=== PATIENT | male | born 1935 | race Caucasian/White ===

== ENCOUNTER 2024-02-21 12:52 | Outpatient (CLI) | payer MEDICARE, BC, SELFPAY ==
[2024-02-21 16:35] LABS: Hemoglobin A1C* 5.6 % (0-5.6)
== END 2024-02-21 12:53 | disposition home or self-care (01) ==
PROVIDERS: Visit Provider Nurse Practitioner Family
DX: I87.332 Chronic venous hypertension (idiopathic) with ulcer and inflammation of left lower extremity (principal); I87.311 Chronic venous hypertension (idiopathic) with ulcer of right lower extremity; I87.2 Venous insufficiency (chronic) (peripheral); I89.0 Lymphedema, not elsewhere classified; L97.228 Non-pressure chronic ulcer of left calf with other specified severity; L97.818 Non-pressure chronic ulcer of other part of right lower leg with other specified severity; S91.302A Unspecified open wound, left foot, initial encounter; E88.810 Metabolic syndrome; E66.09 Other obesity due to excess calories; Z68.36 Body mass index [BMI] 36.0-36.9, adult
CPT/HCPCS: 36415; 83036; 87070; 87186; 97602; G0463

== ENCOUNTER 2024-02-24 10:51 | Outpatient (CLI) | payer MEDICARE, BC, SELFPAY | END 2024-02-24 10:52 | disposition home or self-care (01) | LOC: WOUND 10:51 | PROVIDERS: Visit Provider Nurse Practitioner Family | DX: I87.332 Chronic venous hypertension (idiopathic) with ulcer and inflammation of left lower extremity (principal); I87.311 Chronic venous hypertension (idiopathic) with ulcer of right lower extremity; I87.2 Venous insufficiency (chronic) (peripheral); I89.0 Lymphedema, not elsewhere classified; L97.222 Non-pressure chronic ulcer of left calf with fat layer exposed; L97.818 Non-pressure chronic ulcer of other part of right lower leg with other specified severity; E88.810 Metabolic syndrome | CPT/HCPCS: 29581 ==

== ENCOUNTER 2024-02-27 11:04 | Outpatient (CLI) | payer MEDICARE, BC, SELFPAY | END 2024-02-27 11:05 | disposition home or self-care (01) | LOC: WOUND 11:04 | PROVIDERS: Visit Provider Family Medicine | DX: I87.332 Chronic venous hypertension (idiopathic) with ulcer and inflammation of left lower extremity (principal); I87.2 Venous insufficiency (chronic) (peripheral); L97.528 Non-pressure chronic ulcer of other part of left foot with other specified severity; I89.0 Lymphedema, not elsewhere classified; R21 Rash and other nonspecific skin eruption | CPT/HCPCS: 11042 ==

== ENCOUNTER 2024-03-06 12:51 | Outpatient (CLI) | payer MEDICARE, BC, SELFPAY | END 2024-03-06 12:52 | disposition home or self-care (01) | LOC: WOUND 12:52 | PROVIDERS: Visit Provider Family Medicine | DX: I87.332 Chronic venous hypertension (idiopathic) with ulcer and inflammation of left lower extremity; I87.2 Venous insufficiency (chronic) (peripheral); L97.828 Non-pressure chronic ulcer of other part of left lower leg with other specified severity; L97.528 Non-pressure chronic ulcer of other part of left foot with other specified severity; R21 Rash and other nonspecific skin eruption; I89.0 Lymphedema, not elsewhere classified | CPT/HCPCS: 11042; G0463 ==

== ENCOUNTER 2024-03-13 14:39 | Outpatient (CLI) | payer MEDICARE, BC, SELFPAY | END 2024-03-13 14:40 | disposition home or self-care (01) | LOC: WOUND 14:39 | PROVIDERS: Visit Provider Nurse Practitioner Family | DX: I87.332 Chronic venous hypertension (idiopathic) with ulcer and inflammation of left lower extremity (principal); I87.2 Venous insufficiency (chronic) (peripheral); L97.528 Non-pressure chronic ulcer of other part of left foot with other specified severity; I89.0 Lymphedema, not elsewhere classified; R21 Rash and other nonspecific skin eruption | CPT/HCPCS: 97597; 97602; G0463 ==

== ENCOUNTER 2024-03-20 14:06 | Outpatient (CLI) | payer MEDICARE, BC, SELFPAY | END 2024-03-20 14:07 | disposition home or self-care (01) | LOC: WOUND 14:07 | PROVIDERS: Visit Provider Nurse Practitioner Family | DX: I87.332 Chronic venous hypertension (idiopathic) with ulcer and inflammation of left lower extremity (principal); I87.2 Venous insufficiency (chronic) (peripheral); I89.0 Lymphedema, not elsewhere classified; L97.522 Non-pressure chronic ulcer of other part of left foot with fat layer exposed; L97.528 Non-pressure chronic ulcer of other part of left foot with other specified severity | CPT/HCPCS: 97602 ==

== ENCOUNTER 2024-03-27 13:33 | Outpatient (CLI) | payer MEDICARE, BC, SELFPAY | END 2024-03-27 13:34 | disposition home or self-care (01) | LOC: WOUND 13:33 | PROVIDERS: Visit Provider Nurse Practitioner Family | DX: I87.332 Chronic venous hypertension (idiopathic) with ulcer and inflammation of left lower extremity (principal); I87.2 Venous insufficiency (chronic) (peripheral); I89.0 Lymphedema, not elsewhere classified; L97.528 Non-pressure chronic ulcer of other part of left foot with other specified severity; R21 Rash and other nonspecific skin eruption | CPT/HCPCS: 97597; 97602 ==

== ENCOUNTER 2024-04-03 13:43 | Outpatient (CLI) | payer MEDICARE, BC, SELFPAY | END 2024-04-03 13:44 | disposition home or self-care (01) | LOC: WOUND 13:43 | PROVIDERS: Visit Provider Nurse Practitioner Family | DX: I89.0 Lymphedema, not elsewhere classified (principal); L97.528 Non-pressure chronic ulcer of other part of left foot with other specified severity | CPT/HCPCS: 97597; 97602 ==

== ENCOUNTER 2024-04-10 13:39 | Outpatient (CLI) | payer MEDICARE, BC, SELFPAY | END 2024-04-10 13:40 | disposition home or self-care (01) | LOC: WOUND 13:39 | PROVIDERS: Visit Provider Nurse Practitioner Family | DX: I89.0 Lymphedema, not elsewhere classified (principal); I87.2 Venous insufficiency (chronic) (peripheral); L97.528 Non-pressure chronic ulcer of other part of left foot with other specified severity | CPT/HCPCS: 97602 ==

== ENCOUNTER 2024-04-23 14:36 | Outpatient (CLI) | payer MEDICARE, BC, SELFPAY | END 2024-04-23 14:37 | disposition home or self-care (01) | LOC: WOUND 14:36 | PROVIDERS: Visit Provider Nurse Practitioner Family | DX: I87.332 Chronic venous hypertension (idiopathic) with ulcer and inflammation of left lower extremity (principal); I87.2 Venous insufficiency (chronic) (peripheral); I89.0 Lymphedema, not elsewhere classified; L97.522 Non-pressure chronic ulcer of other part of left foot with fat layer exposed | CPT/HCPCS: G0463 ==

== ENCOUNTER 2024-05-01 13:39 | Outpatient (CLI) | payer MEDICARE, BC, SELFPAY | END 2024-05-01 13:40 | disposition home or self-care (01) | LOC: WOUND 13:39 | PROVIDERS: Visit Provider Nurse Practitioner Family | DX: I87.332 Chronic venous hypertension (idiopathic) with ulcer and inflammation of left lower extremity (principal); I87.2 Venous insufficiency (chronic) (peripheral); I89.0 Lymphedema, not elsewhere classified; L97.528 Non-pressure chronic ulcer of other part of left foot with other specified severity | CPT/HCPCS: G0463 ==

== ENCOUNTER 2024-05-22 13:34 | Outpatient (CLI) | payer MEDICARE, BC, SELFPAY | END 2024-05-22 13:35 | disposition home or self-care (01) | LOC: WOUND 13:35 | PROVIDERS: Visit Provider Nurse Practitioner Family | DX: I89.0 Lymphedema, not elsewhere classified (principal) | CPT/HCPCS: G0463 ==

== ENCOUNTER 2024-09-17 15:11 | Emergency (ER) | payer MEDICARE, BC, SELFPAY ==
[2024-09-17 15:15] VITALS: BP 175/78; PULSE 67; RESP 18; TEMP 37.1; O2SAT 94; BMI 35.6
--- NOTE | 2024-09-17 15:42 | ED.GENADULT ---
HPI - General Adult General Time Seen by Provider: 15:42 Date Seen: 09/17/24 Chief complaint: Lower Extremity Swelling Stated complaint: Infection in right foot/ spreading to left Time Seen by Provider: 09/17/24 15:42 Source: patient, family, RN notes reviewed and old records reviewed (has been in wound clinic here with noted lymphedema) Mode of arrival: ambulatory Limitations: no limitations History of Present Illness HPI narrative: This 89-year-old male is coming in accompanied by his daughter with concern of possible foot infection. She does wraps and wound treatment for him, he has chronic lymphedema. He has been seen in the Wound Clinic before. They had some leftover product from Wound Clinic, she started to dress the dorsum of his right foot. She noted an area at the base of his 5th toe and along the great toe that she was treating with some Betadine and then putting a layer of wound treatment on it, some type of product. She notes he has no fevers, he denies any fevers, denies any night sweats or chills. He is not having increased pain. They do wraps for his lower extremities, they cannot do any compression stockings as his skin is too thin and it ends up traumatizing his skin per his daughter's report. She had to go way a couple of times recently in there has been a course of 2 days in 2 separate periods where she was not able to do the daily wraps and treatments. She is favoring hospitalization given he had some any problems with infection. She states the Wound Clinic was the only other place that did wound culture before. I did look at the records, we have a wound culture from January of 2024 that was MSSA, strep agalactiae a group B only resistant to tetracycline, Klebsiella oxytoca which was only resistant to ampicillin. He reportedly has had history of prostate cancer with potentially radiation per wound clinic notes. No diabetes noted. He is noted to have lymphedema. Related Data Home Medications ?Medication ?Instructions ?Recorded ?Confirmed carvedilol 6.25 mg tablet 6.25 mg PO BID 09/17/24 09/17/24 losartan 25 mg tablet 25 mg PO DAILY 09/17/24 09/17/24 rosuvastatin 10 mg tablet 10 mg PO QPM 09/17/24 09/17/24 spironolactone 25 mg tablet 25 mg PO DAILY 09/17/24 09/17/24 tamsulosin 0.4 mg capsule 0.4 mg PO QAM 09/17/24 09/17/24 Previous Rx's ?Medication ?Instructions ?Recorded levofloxacin 500 mg tablet 500 mg PO DAILY #9 tabs 09/17/24 Review of Systems Status of ROS: Reports: 6 or more systems reviewed and unremarkable except as noted in History and below PFSH PFS Social History Smoking Status: Former smoker How often do you have a drink containing alcohol: monthly or less AUDIT-C Alcohol total score: 1 Non-prescribed substance use: denies use Exam Const: Vital Signs, click to edit/add: Vital Signs - 24 hr 09/17/24 15:15 09/17/24 17:24 Temperature 98.8 F 98.6 F Pulse Rate [Right Pulse Oximeter] 67 53 L Respiratory Rate 18 18 Blood Pressure [Ri ght Upper Arm] 175/78 H 141/87 H Pulse Oximetry 94 95 Oxygen Delivery Me thod Room Air Room Air Santos was initially in the bathroom when I came in to see him, I waited in talked to his daughter. He did ambulate back from the bathroom. He has boots in wraps on his lower extremities. The right 1 was taken down, his daughter has multiple layers and management of his extremities seems to be extensive. He had a Velcro wrap that was taken down, gauze as, ultimately can see when everything is removed that he has no pretibial edema. The dorsum of his foot is somewhat swollen, somewhat red confluency over the dorsum. There is some cracking of the skin at the base of the 5th toe on the dorsum. He has got a little bit of wound along the lateral surface of the 1st great toe. There is some mild warmth but no fluctuance anywhere. You can see that the base later of the dressing he had on had collected some fluid in these 2 areas. I do try to do a wound culture of the 2 areas that were collecting fluid on the dressing but they are primarily dry, do see that there is maybe a little discharge that I have collected. He does complain of some mild pain when I am doing this. Certainly do not feel any areas of abscess. This could be some mild cellulitis verses lymphedema change, very difficult to say. He otherwise is alert, interactive, no apparent distress. Face atraumatic. Lungs are clear, good air entry, no wheezing or crackles. CV regular rate and rhythm, no murmur, normal S1-S2. Documenting provider has reviewed patient's vital signs: yes Course Course ED Course: This patient does have chronic lymphedema and certainly could have early mild cellulitis based on clinical appearance. His daughter obviously is doing diligent excellent wrapping and wound care. Will try to see if this wound culture grows anything but there was not much drainage to collect. Will get baseline labs, will stab lotion IV in case labs come back concerning. Overall, my opinion is that there could be some early cellulitis cm we may need antibiotics. Do feel that he likely can be discharged based on what I am seen but will await labs. I will certainly touch base with the hospitalist once we have labs back. Reevaluation(s) Time of Reevaluation #1: 17:41 Reevaluation #1: Have reviewed with patient and his daughter that I did speak with hospitalist Dr. Kwon and there is no indication for hospitalization. Upon review of his prior wound culture, could certainly consider levaquin. We never truly know exact etiologies of infections until wound cultures are back. I did review with them that I am not 100% sure that there is infection but given the drainage that we saw coming off on the bandages, will cover for infection. They certainly have noticed worsening over the last 2 weeks per his daughter and will cover with Levaquin. We did discuss that the bioavailability of oral verses IV Levaquin is no different. Will give him a dose of oral Levaquin here tonight and discharge on this. I will also put a new referral to the Wound Clinic through. Vital Signs Vital signs: Initial Vital Signs Temperature 98.8 F 09/17/24 15:15 Temperature Source Temporal Artery Scan 09/17/24 15:15 Pulse Rate 67 09/17/24 15:15 Pulse Rhythm Regular 09/17/24 15:15 Pulse Strength 3+ Normal 09/17/24 15:15 Respiratory Rate 18 09/17/24 15:15 Blood Pressure 175/78 H 09/17/24 15:15 Blood Pressure Mean 110 H 09/17/24 15:15 Blood Pressure Position Sitting 09/17/24 15:15 Pulse Oximetry 94 09/17/24 15:15 Oxygen Delivery Method Room Air 09/17/24 15:15 Vital Signs Temperature 98.8 F 09/17/24 15:15 Pulse Rate 67 09/17/24 15:15 Respiratory Rate 18 09/17/24 15:15 Blood Pressure 175/78 H 09/17/24 15:15 Pulse Oximetry 94 09/17/24 15:15 Oxygen Delivery Method Room Air 09/17/24 15:15 Temperature 98.6 F 09/17/24 17:24 Pulse Rate 53 L 09/17/24 17:24 Respiratory Rate 18 09/17/24 17:24 Blood Pressure 141/87 H 09/17/24 17:24 Pulse Oximetry 95 09/17/24 17:24 Oxygen Delivery Method Room Air 09/17/24 17:24 Medical Decision Making Lab Data Lab results reviewed: Yes I reviewed the patient's lab results Labs: Lab Results 09/17/24 Range/Units 16:16 WBC 6.04 (4.50-11.00) K/uL RBC 4.68 (4.30-5.90) m/uL Hgb 14.5 (13.5-17.5) gm/dL Hct 43.8 (37.0-53.0) % MCV 94 (80-100) fL MCH 31 (26-34) pg MCHC 33 (32-36) gm/dL RDW Coeff of Thang 13.0 (11.5-15.5) % Plt Count 151 (140-440) K/uL Neut % (Auto) 68.7 (42.0-72.0) % Lymph % (Auto) 15.9 L (20-44) % [place] % (Auto) 9.6 (0.0-11.0) % Eos % (Auto) 4.8 (0.0-7.0) % Baso % (Auto) 0.5 (0.0-3.0) % Neut # (Auto) 4.15 (1.7-7.0) K/uL Lymph # (Auto) 1.00 (0.90-2.90) K/uL [place] # (Auto) 0.60 (0.00-0.90) K/UL Eos # (Auto) 0.29 (0.00-0.50) K/uL Baso # (Auto) 0.03 (0.00-0.30) K/uL Abs Immat Gran (auto) 0.03 (0.00-0.30) K/uL Imm/Tot Granulo (auto) 0.5 % Sodium 136 (135-149) mmol/L Potassium 4.7 (3.6-5.1) mmol/L Chloride 104 (96-114) mmol/L Carbon Dioxide 27 (20-32) mmol/L Anion Gap 5 L (7-15) mEq/L BUN 21 (7-30) mg/dL Creatinine 1.3 (0.5-1.5) mg/dL Estimated Creat Clear 42.64 Estimated GFR 53 ml/min Glucose 101 (60-115) mg/dL Lactate 1.3 (0.5-1.9) mmol/L Calcium 9.0 (8.4-10.6) mg/dL Total Bilirubin 0.6 (0.1-1.5) mg/dL AST 35 (12-35) U/L ALT 30 (4-50) U/L Alkaline Phosphatase 63 (40-150) U/L C-Reactive Protein < 0.5 L (0.5-1.0) mg/dL Total Protein 6.8 (6.0-8.3) g/dL Albumin 4.2 (3.3-5.0) g/dL Procalcitonin 0.07 (<0.50) ng/mL Discharge Plan Discharge Clinical Impression: Lymphedema, Localized swelling of right foot Patient Disposition: Home, Self-Care Condition: Stable Instructions: Cellulitis (ED), Lymphedema (ED) Additional Instructions: I have put a new referral in for the Wound Clinic, hopefully they will be in touch with the soon to get you back in. Continue the wound cares that you have been doing, the daily dressing and wraps to help with the lymphedema. We will continue with Levaquin daily, next dose due tomorrow evening. You did receive a dose here tonight in the ER. This is a once daily antibiotic and the oral form is just as good as the IV form of this medicine. Continue to watch this foot for worsening, please return to the ER if you feel that there is worsening of infection despite the Levaquin. If you cannot get into the wound clinic within the next week, you are going to need a follow-up appointment with your primary care provider in clinic. Activity Level: Activity as Tolerated Prescriptions: New levofloxacin 500 mg tablet 500 mg PO DAILY Qty: 9 0RF No Action carvedilol 6.25 mg tablet 6.25 mg PO BID spironolactone 25 mg tablet 25 mg PO DAILY tamsulosin 0.4 mg capsule 0.4 mg PO QAM losartan 25 mg tablet 25 mg PO DAILY rosuvastatin 10 mg tablet 10 mg PO QPM Follow Up/Referrals: Provider,Not a Local [Primary Care Provider, Family Practice] Stand Alone Forms: [facility] Info Instructions
--- OUTSIDE RECORDS SUMMARY | 2024-09-17 16:11 | XMS_ITS | Encounter Summary ---
Author Organization [facility] Address [address] [place] [address]. [place] [address] Care Team Providers Care Industrial Truck Operator Name Role Phone Carolina Alex MD Unavailable + [phone] Carolina Alex MD Unavailable + [phone] Reji Jessica MD Unavailable [phone] Enoc Rossi DO Primary Care Provider [phone] Candie Bonilla APRN AUTOMOTIVE PRODUCTION WORKER Unavailable + [phone] Reji Jessica MD Unavailable + [phone] Napoleon Johnson MD Unavailable Unavailab Rashmi Rehman APRN AUTOMOTIVE PRODUCTION WORKER Unavailable [phone] Rashmi Ennis APRN AUTOMOTIVE PRODUCTION WORKER Unavailable [phone] Napoleon Johnson MD Unavailable Unavailab Rashmi Rehman APRN AUTOMOTIVE PRODUCTION WORKER Unavailable [phone] Napoleon Johnson MD Unavailable Unavailab le Encounter Details Date Type Department Care Team (Late st Contact Info) Description 06/18/2021 [facility] Heart [facility] [address] [facility] [address] [place] [address] Candie Bonilla APRN AUTOMOTIVE PRODUCTION WORKER [address] [facility] [address] [place] [address] Social History Tobacco Use Types Packs/Day Years Used Date Smoking Tobacco: Never Smokeless Tobacco: Never Comments:Pt states he has ne sabrina smoked Alcohol Use Standard Drinks/Week Comments Yes 0 (1 standard drink = 0.6 oz pur e alcohol) 2 shots per night Sex and Gender Information Value Date Recorded Sex Assigned at Male 03/09/2021 1:10 PM CAREER BASED INTERVENTION COORDINATOR Legal Sex Male 3:26 AM CAREER BASED INTERVENTION COORDINATOR Gender Identity Male 03/09/2021 1:10 PM CAREER BASED INTERVENTION COORDINATOR Sexual Orientation Straight 03/09/2021 1: 10 PM CAREER BASED INTERVENTION COORDINATOR COVID-19 Exposure Response Date Recorded In the last month, have you been in contact with someone who was confirmed or suspected to have Coronavirus / COVID-19? No / Unsure 06/16/2021 9:58 AM CAREER BASED INTERVENTION COORDINATOR documented as of this encounter Plan of Treatment Not on file documented as of this encounter Visit Diagnoses Not on filedocumented in this encounter Additional Health Concerns Infection Onset Date Last Indicated Resolved Time Rule Out COVID-19 04/21/2022 04/21/2022 04/21/2022 8:12 AM CAREER BASED INTERVENTION COORDINATOR documented as of this encounter Care Teams Industrial Truck Operator Relationship Specialty [place] [address] [place] [id number] PCP - General Family Medicine 06/16/21 Carolina Alex MD [address] [facility] [place] [address] Hematology & Oncology 11/18/15 Carolina Alex MD [address] [facility] [address] Assigned Cancer Care Provider 11/07/20 08/29/21 Reji Jessica MD [address] [facility] [address] [facility] [place] [address] Assigned Heart and Vascular Provider 03/15/21 06/20/21 Candie Bonilla APRN AUTOMOTIVE PRODUCTION WORKER [address] [place] [address] Assigned Heart and Vascular Provider 06/21/21 04/02/22 Reji Jessica MD [address] [place] [address] Assigned Heart and Vascular Provider 04/03/22 05/14/22 Napoleon Johnson MD Assigned Heart and Vascular Provider 05/15/22 06/25/22 Rashmi Ennis APRN AUTOMOTIVE PRODUCTION WORKER [address] [place] [address] Nurse Practitioner Cardiovascular Disease 06/17/22 Rashmi Ennis APRN AUTOMOTIVE PRODUCTION WORKER [address] [place] [address] Assigned Heart and Vascular Provider 06/26/22 08/20/22 Napoleon Johnson MD Assigned Heart and Vascular Provider 08/21/22 08/27/22 Rashmi Ennis APRN AUTOMOTIVE PRODUCTION WORKER [address] [place] [address] Assigned Heart and Vascular Provider 08/28/22 11/05/22 Napoleon Johnson MD Assigned Heart and Vascular Provider 11/06/22 documented as of this encounter
--- OUTSIDE RECORDS SUMMARY | 2024-09-17 16:11 | XMS_ITS | Encounter Summary ---
Author Organization [facility] Address [address] [place] [address] Care Team Providers Care Carbon Blocks Press Operator Name Role Phone Primary Dr, Kate WILSON Primary Care Provider Lou vailable Yaima Drake MD Primary Care Provider + [phone] Napoleon Johnson MD Unavailable Unavailab Carolina Nettles MD Unavailable + [phone] Carolina Alex MD Unavailable + [phone] Candie Bonilla APRN PRIVATE SECTOR EXECUTIVE Unavailable +[phone] Reji Jessica MD Unavailable + [phone] Enoc Rossi DO Primary Care Provider [phone] Candie Bonilla APRN PRIVATE SECTOR EXECUTIVE Unavailable +[phone] Reji Jessica MD Unavailable + [phone] Napoleon Johnson MD Unavailable Unavailab Rashmi Rehman APRN PRIVATE SECTOR EXECUTIVE Unavailable +[phone] Rashmi Ennis APRN, CNP Unavailable +[phone] Napoleon Johnson MD Unavailable Unavailab Rashmi Rehman APRN PRIVATE SECTOR EXECUTIVE Unavailable +[phone] Napoleon Johnson MD Unavailable Unavailab le Encounter Details Date Type Department Care Team (Late st Contact Info) Description 02/20/2007 Office Visit-[facility] [address] [place] [address] Phoenix Madrid MD Social History Tobacco Use Types Packs/Day Years Used Date Smoking Tobacco: Never Assessed Sex and Gender Information Value Date Recorded Sex Assigned at Male 03/09/2021 1:10 PM DIRECTOR OF CARDIOPULMONARY SERVICES Legal Sex Male 3:26 AM DIRECTOR OF CARDIOPULMONARY SERVICES Gender Identity Male 03/09/2021 1:10 PM DIRECTOR OF CARDIOPULMONARY SERVICES Sexual Orientation Straight 03/09/2021 1: 10 PM DIRECTOR OF CARDIOPULMONARY SERVICES documented as of this encounter Progress Notes * Phoenix Madrid MD - 02/22/2007 11:02 AM CDT Progress Note Created by: Phoenix Madrid M.D. DATE: 02/20/2007 ANAIHilary CURLY [id number] DATE OF : 1935 AGE: [age] years old Referring Physician: YAIMA DRAKE Referring Clinic: [facility] CURRENT DIAGNOSES 1. - CAD, 414.00 2. 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 - Palpitations, 785.1 4. Abnormal Ekg, 794.31 5. PTCA, V45.82 ALLERGIES NKA MEDICATIONS (prior to changes made today) 1. Fish Oil -, 1 p.o. q.d. 2. Repronex 75 iu, 1 p.o. q.i.d. 3. Arginine 500 mg, 1 p.o. q.d. 4. CoQ 10 50 mg, 1 p.o. b.i.d. 5. Beta Carotene 30 mg, 1 p.o. q.d. 6. garlic 600 mg, 1 p.o. q.d. 7. Danielle-Dec Multiple Vitamins with Minerals, 1 p.o. q.d. 8. Vitamin C 250 mg, 225 mg qd 9. Avodart 0.5 mg, 1 p.o. q.d. 10. Atenolol 25 mg, 1 p.o. qAM 11. Aspirin 81 mg, 1 p.o. qPM 12. Lipitor 10 mg, 1/2 tab qHS 13. Amlodipine 5 mg, 1 p.o. qHS CHIEF COMPLAINTS Per MD - follow up HISTORY OF PRESENT ILLNESS Curly Soria, age 72, came today, a happy, active, and asymptomatic man. 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 He does not exercise particularly but he is very active doing housework, yardwork, shopping, etc. He denies any cardiovascular symptoms. His medications are as listed above. He says you have been satisfied with his cholesterol profile. I have been shooting for total cholesterols below 160, and LDL below 70. He is not on an SHOBHA inhibitor but he is happy on the low dose beta kay and amlodipine program above and Lipitor, of course,for his cholesterol profile. Raudel has coronary artery disease. It was documented in June,, which showed a totally occluded posterolateral branch of the RCA, receiving a Cypher drug eluting stent, and mild LAD and proximal RCA disease otherwise. His LV function has been well maintained but his last ejection fraction from a Cardiolite study a year ago, in December,, showed an LVEF of 54%, with a small inferior scar and no ischemia. Curly's physical exam showed a blood pressure of 130/80, heart rate 60 beats per minute. Head andneck were normal. No bruits heard. No neck vein distention present. Heart was regular without gallop or murmur. Lungs were clear. Abdomen was soft without organomegaly, mass, or bruit. He is mildly obese. Extremities show +2 radial and pedal pulses and no edema. The rest of his exam was normal. 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 severe inferolateral ischemia with small nontransmural DE; EF decreases from from 54 to 50% rest to exercise., myocardial perfusion imaging (Nuclear) November 2003, myocardial perfusion imaging (Nuclear) December 2004, myocardial perfusion imaging (Nuclear) December 2005, myocardial perfusion imaging (Nuclear) January 2007 Left Ventricular Ejection Fraction: 50%, 58% 12/27, EF50% by nuclear study -December 2004, EF50% by nuclear study - December 2005, 01/2007 ejection fraction was 59% at rest and 60% peak stress. PMHx Stress Echo Results: 03/26: LVH but otherwise normal Nuclear Results: 01/2007 negative for ischemia or infarction. FAMILY HISTORY: Father - age 96 and Alzhiemers; Mother - pacemaker; CARDIAC RISK FACTORS Tobacco Abuse: negative; Family History of Heart Disease: negative; Hyperlipidemia: lipids pending;Hypertension: positive; Diabetes Mellitus: negative; Prior History of Heart Disease: negative; Obesity:negative; Sedentary Life Style:negative; Age:positive SOCIAL HISTORY Alcohol Use - drinks occasionally, wine and mixed drinks; Smoking - never smoked; Diet - regular diet without modifications and caffeine use-1-2 per day; Lifestyle - , drives car, active lifestyle, does shopping alone and does yard work; Exercise - some exercise, aerobics, treadmill, weight lifting and 2 days per week; Seat Belt Use - always; Occupation - forensic accountant; Residence - lives withwife and lives in [place] year round in own home; Place of - [place]; Hours Worked - retired 03/2006; REVIEW OF SYSTEMS GENERAL denies recent weight loss, weight gain, fever or chills or change in exercise tolerance. INTEGUMENTARY denies any change in hair or nails, rashes, or skin lesions. EYES wears eye glasses/contact lenses EARS, NOSE, THROAT, MOUTH denies any hearing loss, epistaxis, hoarseness or difficulty speaking. RESPIRATORY denies dyspnea, snoring, cough, wheezing or hemoptysis. CARDIOVASCULAR See HPI ABDOMINAL denies ulcer disease, hematochezia or melena. MUSCULOSKELETAL pain back, joint pain NEUROLOGICAL tia in 1983 PSYCHIATRIC sleep disturbance, needs more of it ENDOCRINE polydipsia, intolerance to cold HEMATOLOGICAL/IMMUNOLOGIC seasonal allergies PHYSICAL EXAMINATION VITAL SIGNS: Blood Pressure: 130/80 Sitting, Left arm, large cuff Pulse- 58.00/min. Weight- 229.00 lbs. Height- 72.00 Temperature- .00 CONSTITUTIONAL cooperative, alert and oriented,well developed, well nourished, in no acute distress. SKIN warm and dry to touch, no apparent skin lesions or masses noted HEAD normocephalic, atraumatic EYES Pupils equal and round, conjunctivae and lids unremarkable, sclera white, no xanthalasma ENT no pallor or cyanosis, dentition good CHEST normal symmetry, no tenderness to palpation, normal respiratory excursion, no intercostal retraction, no use of accessory muscles, clear to auscultation and percussion. CARDIAC regular rhythm, S1 normal, S2 normal, No S3 or S4, Apical impulse not displaced, no murmurs, gallops or rubs detected. ABDOMEN abdomen soft, bowel sounds normoactive, no masses, no hepatosplenomegaly, non- tender, no bruits PERIPHERAL PULSES pulses full and equal in all extremities EXTREMITIES & BACK no clubbing, cyanosis or edema PSYCHIATRIC no difficulties with speech or language, normal memory NEUROLOGICAL no gross motor deficits noted, affect appropriate, oriented to time, person and place. MEDICATIONS UPDATED/STARTED TODAY: Atenolol 25 mg, 1 p.o. qAM, 0 Aspirin 81 mg, 1 p.o. qPM, 0 Lipitor 10 mg, 1/2 tab qHS, 0 Amlodipine 5 mg, 1 p.o. qHS, 0 IMPRESSIONS/PLAN Curly is 72 and he is asymptomatic. I asked to see him again in two or three years, or should he develop symptoms. If he is stable I told him he did not really even need to follow up with me, although an occasional stress test I think does make some sense in this otherwise vivacious and active 72-year-old man. I reviewed these issues with him. He was satisfied with his status and so was I. I referred him to you for ongoing care. If he has problems, please let me know. 1. Whm-lxxy-yjdwpsmrads coronary artery disease. 2. Asymptomatic otherwise. 3. Post stenting of distal RCA. 4. Mild obesity. 5. Treated hyperlipidemia. 6. Treated hypertension. PLAN: As above. TODAYS ORDERS 1. F/U with Phoenix Madrid MD 2 years 2. Treadmill Nuclear Study 1 year Phoenix Madrid M.D. documented in this encounter Plan of Treatment Not on file documented as of this encounter Visit Diagnoses Not on filedocumented in this encounter Additional Health Concerns Infection Onset Date Last Indicated Resolved Time Rule Out COVID-19 04/21/2022 04/21/2022 04/21/2022 8:12 AM DIRECTOR OF CARDIOPULMONARY SERVICES documented as of this encounter Care Teams Carbon Blocks Press Operator Relationship Specialty Start Date End Date Primary Kate Pitts MD PCP - General 01/05/11 01/05/12 Yaima Drake MD [facility] [address] [place] [phone] PCP - General Family Practice 01/06/12 06/15/21 [place] [address] [place] [phone] PCP - General Family Medicine 06/16/21 Napoleon Johnson MD Assigned Heart and Vascular Provider 02/15/20 01/24/21 Carolina Alex MD [address] [place] [address] Hematology & Oncology 11/18/15 Carolina Alex MD [address] [place] [address] Assigned Cancer Care Provider 11/07/20 08/29/21 Candie Bonilla APRN PRIVATE SECTOR EXECUTIVE [address] [place] [address] Assigned Heart and Vascular Provider 01/25/21 03/14/21 Reji Jessica MD [address] [place] [address] Assigned Heart and Vascular Provider 03/15/21 06/20/21 Candie Bonilla APRN PRIVATE SECTOR EXECUTIVE [address] [place] [address] Assigned Heart and Vascular Provider 06/21/21 04/02/22 Reji Jessica MD [address] [place], [place] [address] Assigned Heart and Vascular Provider 04/03/22 05/14/22 Napoleon Johnson MD Assigned Heart and Vascular Provider 05/15/22 06/25/22 Rashmi Ennis APRN PRIVATE SECTOR EXECUTIVE [address] [place] [address] Nurse Practitioner Cardiovascular Disease 06/17/22 Rashmi Ennis APRN PRIVATE SECTOR EXECUTIVE [address] [place] [address] Assigned Heart and Vascular Provider 06/26/22 08/20/22 Napoleon Johnson MD Assigned Heart and Vascular Provider 08/21/22 08/27/22 Rashmi Ennis APRN PRIVATE SECTOR EXECUTIVE [address] [place] [address] Assigned Heart and Vascular Provider 08/28/22 11/05/22 Napoleon Johnson MD Assigned Heart and Vascular Provider 11/06/22 documented as of this encounter
--- OUTSIDE RECORDS SUMMARY | 2024-09-17 16:11 | XMS_ITS | Encounter Summary ---
Author Organization [facility] Address [address] [place] [address] Care Team Providers Care Foiling Machine Operator Name Role Phone Primary Dr, Kate WILSON Primary Care Provider Lou vailable Yaima Drake MD Primary Care Provider + [phone] Napoleon Johnson MD Unavailable Unavailab Carolina Nettles MD Unavailable + [phone] Carolina Alex MD Unavailable + [phone] Candie Bonilla APRN WINDOWS DEPLOYMENT TECHNICIAN Unavailable +[phone] Reji Jessica MD Unavailable + [phone] Enoc Rossi DO Primary Care Provider [phone] Candie Bonilla APRN WINDOWS DEPLOYMENT TECHNICIAN Unavailable +[phone] Reji Jessica MD Unavailable + [phone] Napoleon Johnson MD Unavailable Unavailab Rashmi Rehman APRN WINDOWS DEPLOYMENT TECHNICIAN Unavailable +[phone] Rashmi Ennis APRN, CNP Unavailable [phone] Napoleon Johnson MD Unavailable Unavailab Rashmi Rehman APRN WINDOWS DEPLOYMENT TECHNICIAN Unavailable +[phone] Napoleon Johnson MD Unavailable Unavailab le Encounter Details Date Type Department Care Team (Late st Contact Info) Description 01/22/2004 Office Visit-[facility] [address] [place] [address] Unknown, DoctorMD Social History Tobacco Use Types Packs/Day Years Used Date Smoking Tobacco: Never Assessed Sex and Gender Information Value Date Recorded Sex Assigned at Male 03/09/2021 1:10 PM STATE INSPECTOR Legal Sex Male 3:26 AM STATE INSPECTOR Gender Identity Male 03/09/2021 1:10 PM STATE INSPECTOR Sexual Orientation Straight 03/09/2021 1: 10 PM STATE INSPECTOR documented as of this encounter Progress Notes * Unknown, MD Sunny - 01/22/2004 10:01 AM CDT Progress Note Created by: Shelbi Avila MD DATE: 01/22/2004 [place] DATE OF : 1935 AGE: [age] years old Referring Physician: YAIMA DRAKE Referring Clinic: [facility] [id number] CURRENT DIAGNOSES 1. PTCA, V45.82 2. - CAD, 414.00 3. 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 - Palpitations, 785.1 ALLERGIES NKA MEDICATIONS (including any changes made today) 1. Danielle-Dec Multiple Vitamins with Minerals, 1 p.o. q.d. 2. Vitamin C 250 mg, 225 mg qd 3. Aspirin Child 81 mg, 1 p.o. q.d. 4. Norvasc 5 mg, 1 p.o. q.d. 5. Lipitor 20 mg, 1 p.o. q.d. 6. Atenolol 50 mg, 1 p.o. q.d. 7. Nitroglycerin 0.4 mg, PRN CHIEF COMPLAINTS S/P PTCA/Stent HISTORY OF PRESENT ILLNESS Curly feels so good he can hardly stand it. His nuclear stress shows no ischemia and his lipid profile continues to improve. He denies any symptoms referable to his cardiac status. 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 severe inferolateral ischemia with small nontransmural MS; EF decreases from from 54 to 50% rest to exercise., myocardial perfusion imaging (Nuclear) November 2003 Left Ventricular Ejection Fraction: 50%, 58% 12/27 FAMILY HISTORY: Father - Alzhiemers; Mother - pacemaker; CARDIAC RISK FACTORS Tobacco Abuse: negative; Family History of Heart Disease: negative; Hyperlipidemia: lipids pending;Hypertension: positive; Diabetes Mellitus: negative; Prior History of Heart Disease: negative; Obesity:negative; Sedentary Life Style:negative; Age:positive SOCIAL HISTORY Alcohol Use - drinks occasionally, wine and mixed drinks; Smoking - never smoked; Diet - regular diet without modifications and caffeine use-1-2 per day; Exercise - some exercise, aerobics, treadmill, weight lifting and 2 days per week; Seat Belt Use - always; Occupation - property staff accountant; Residence - lives with ; Place of - [place]; Hours Worked - 40 hours per week; REVIEW OF SYSTEMS GENERAL weight gain, 1 lb INTEGUMENTARY denies any change in hair or nails, rashes, or skin lesions. EYES wears eye glasses/contact lenses EARS, NOSE, THROAT, MOUTH denies any hearing loss, epistaxis, hoarseness or difficulty speaking. RESPIRATORY allergies CARDIOVASCULAR Heart burn last night from wine ABDOMINAL denies ulcer disease, hematochezia or melena. MUSCULOSKELETAL pain back, joint pain NEUROLOGICAL tia in 1983 PSYCHIATRIC stress ENDOCRINE polydipsia, intolerance to cold HEMATOLOGICAL/IMMUNOLOGIC seasonal allergies PHYSICAL EXAMINATION VITAL SIGNS: Blood Pressure: 138/80 Sitting, Left arm, regular cuff Pulse- 56.00/min. Weight- 218.00 lbs. Height- 72.00 Temperature- .00 CONSTITUTIONAL cooperative, alert and oriented,well developed, well nourished, in no acute distress. HEAD normocephalic, atraumatic ENT no pallor or cyanosis, dentition good CHEST normal symmetry, no tenderness to palpation, normal respiratory excursion, no intercostal retraction, no use of accessory muscles, clear to auscultation and percussion. CARDIAC regular rhythm, S1 normal, S2 normal, No S3 or S4, Apical impulse not displaced, no murmurs, gallops or rubs detected. EXTREMITIES & BACK no deformities, clubbing, cyanosis, erythema or edema observed. There are no spinal abnormalities noted. Normal muscle strength and tone. PSYCHIATRIC no difficulties with speech or language, normal memory NEUROLOGICAL no gross motor deficits noted, affect appropriate, oriented to time, person and place. IMPRESSIONS/PLAN: I think it is reasonable to stop the Plavix and PRN NTG today and plan to repeat Curly's nuclear stress and see him in one year unless he has interval problems. He will have his lipid/liver profile checked at Dr Drake's office in six months. TODAYS ORDERS 1. Treadmill Nuclear Study 1 year 2. Return Visit 1 year Shelbi Avila MD documented in this encounter Plan of Treatment Not on file documented as of this encounter Visit Diagnoses Not on filedocumented in this encounter Additional Health Concerns Infection Onset Date Last Indicated Resolved Time Rule Out COVID-19 04/21/2022 04/21/2022 04/21/2022 8:12 AM STATE INSPECTOR documented as of this encounter Care Teams Foiling Machine Operator Relationship Specialty Start Date End Date Primary Kate Pitts MD PCP - General 01/05/11 01/05/12 Yaima Drake MD [facility] [address] [place] [address] PCP - General Family Practice 01/06/12 06/15/21 [place] [address] [place] [address] PCP - General Family Medicine 06/16/21 Napoleon Johnson MD Assigned Heart and Vascular Provider 02/15/20 01/24/21 Carolina Alex MD [address] [place] [address] Hematology & Oncology 11/18/15 Carolina Alex MD [address] [place] [address] Assigned Cancer Care Provider 11/07/20 08/29/21 Candie Bonilla APRN WINDOWS DEPLOYMENT TECHNICIAN [address] [place] [address] Assigned Heart and Vascular Provider 01/25/21 03/14/21 Reji Jessica MD [address] [place] [address] Assigned Heart and Vascular Provider 03/15/21 06/20/21 Candie Bonilla APRN WINDOWS DEPLOYMENT TECHNICIAN [address] [place] [address] Assigned Heart and Vascular Provider 06/21/21 04/02/22 Reji Jessica MD [address] [place] [address] Assigned Heart and Vascular Provider 04/03/22 05/14/22 Napoleon Johnson MD Assigned Heart and Vascular Provider 05/15/22 06/25/22 Rashmi Ennis APRN WINDOWS DEPLOYMENT TECHNICIAN [address] [place] [address] Nurse Practitioner Cardiovascular Disease 06/17/22 Rashmi Ennis APRN WINDOWS DEPLOYMENT TECHNICIAN [address] [place] [address] Assigned Heart and Vascular Provider 06/26/22 08/20/22 Napoleon Johnson MD Assigned Heart and Vascular Provider 08/21/22 08/27/22 Rashmi Ennis APRN WINDOWS DEPLOYMENT TECHNICIAN [address] [place] [address] Assigned Heart and Vascular Provider 08/28/22 11/05/22 Napoleon Johnsno MD Assigned Heart and Vascular Provider 11/06/22 documented as of this encounter
--- OUTSIDE RECORDS SUMMARY | 2024-09-17 16:11 | XMS_ITS | Encounter Summary ---
Author Organization [facility] Address [address] [place] [address]. [place] [address] Care Team Providers Care Leaflet Distributor Name Role Phone Carolina Alex MD Unavailable +- [phone] Enoc Rossi DO Primary Care Provider [phone] Candie Bonilla APRN IMPOSER Unavailable [phone] Reji Jessica MD Unavailable + [phone] Napoleon Johnson MD Unavailable Unavailab Rashmi Rehman APRN IMPOSER Unavailable Rashmi Ennis APRN IMPOSER Unavailable [phone] Napoleon Johnson MD Unavailable Unavailab Rashmi Rehman APRN IMPOSER Unavailable [phone] Napoleon Johnson MD Unavailable Unavailab le Encounter Details Date Type Department Care Team (Late st Contact Info) Description 02/12/2022 External Order Results [facility] [address] [place] [address] Outside, Provider Social History Tobacco Use Types Packs/Day Years Used Date Smoking Tobacco: Never Smokeless Tobacco: Never Comments:Pt states he has ne sabrina smoked Alcohol Use Standard Drinks/Week Comments Yes 0 (1 standard drink = 0.6 oz pur e alcohol) 1 shot at night Sex and Gender Information Value Date Recorded Sex Assigned at Male 03/09/2021 1:10 PM FIBERGLASS LAMINATOR Legal Sex Male 3:26 AM FIBERGLASS LAMINATOR Gender Identity Male 03/09/2021 1:10 PM FIBERGLASS LAMINATOR Sexual Orientation Straight 03/09/2021 1: 10 PM FIBERGLASS LAMINATOR documented as of this encounter Plan of Treatment Not on file documented as of this encounter Procedures Procedure Name Priority Date/Time Associated Diagnosis Comments LIPID PROFILE Routine 02/12/2022 11:45 AM CDT ALT Routine 02/12/2022 11:45 AM CDT BASIC METABOLIC PANEL Routine 02/12/2022 11:45 AM CDT documented in this encounter Results * (ABNORMAL) Lipid Profile (02/12/2022 11:45 AM CDT) Cholesterol (External) 125 100 - 199 mg/dL NON-INTERFACE D (ONBASE SCANS) Triglycerides (External) 80 <150 mg/dL NON-INTERFACE D (ONBASE SCANS) HDL Cholesterol (External) 38(L) >40 mg/dL NON-INTERFACE D (ONBASE SCANS) LDL-Cholesterol (External) 71 <=130 mg/dL NON-INTERFACE D (ONBASE SCANS) Blood 02/12/2022 11:4 5 AM CDT Narrative MI PFT - 02/15/2022 12:32 PM CDT Verified by Williams Silva on 02/15/2022. Amy Gaona MD LAB - BLOOD ORDERABLES Edited Result - Final MI PFT NON-INTERFACED (ONBASE SCANS) * (ABNORMAL) Basic metabolic panel (02/12/2022 11:45 AM CDT) Sodium (External) 140 135 - 145 mmol/l NON-INTERFACED (ONBASE SCANS) Potassium (External) 4.6 3.5 - 5.0 mmol/l NON-INTERFACED (ONBASE SCANS) Chloride (External) 106 88 - 110 mmol/l NON-INTERFACED (ONBASE SCANS) CO2 (External) 25 21 - 31 mmol/l NON-INTERFACED (ONBASE SCANS) Anion Gap (External) 9 5 - 18 NON-INTERFACED (ONBASE SCANS) Glucose (External) 87 65 - 100 mg/dL NON-INTERFACED (ONBASE SCANS) Calcium (External) 8.7 8.5 - 10.5 mg/dL NON-INTERFACED (ONBASE SCANS) Urea Nitrogen (External) 16 8 - 25 mg/dL NON-INTERFACED (ONBASE SCANS) Creatinine (External) 0.93 0.72 - 1.25 mg/dL NON-INTERFACED (ONBASE SCANS) BUN/Creatinine Ratio (External) 17 10 - 20 NON-INTERFACED (ONBASE SCANS) GFR Estimated (External) 80(L) >90 ml/min/1.7 3m2 NON-INTERFACED (ONBASE SCANS) Blood 02/12/2022 11:4 5 AM CDT Narrative [facility] PFT - 02/15/2022 12:32 PM CDT Verified by Williams Silva on 02/15/2022. Amy Gaona MD LAB - BLOOD ORDERABLES Edited Result - Final [facility] PFT NON-INTERFACED (ONBASE SCANS) * ALT (02/12/2022 11:45 AM CDT) ALT (External) 18 8 - 45 IU/ml NON-INTERFACED (ONBASE SCANS) Blood 02/12/2022 11:4 5 AM CDT Narrative [facility] PFT - 02/15/2022 12:32 PM CDT Verified by Williams Silva on 02/15/2022. Amy Gaona MD LAB - BLOOD ORDERABLES Edited Result - Final [facility] PFT NON-INTERFACED (ONBASE SCANS) documented in this encounter Visit Diagnoses Not on filedocumented in this encounter Additional Health Concerns Infection Onset Date Last Indicated Resolved Time Rule Out COVID-19 04/21/2022 04/21/2022 04/21/2022 8:12 AM FIBERGLASS LAMINATOR documented as of this encounter Care Teams Leaflet Distributor Relationship Specialty [place] [address] [address] [place] [phone] PCP - General Family Medicine 06/16/21 Carolina Alex MD [address] [place] [address] Hematology & Oncology 11/18/15 Candie Bonilla APRN IMPOSER [address] [place] [address] Assigned Heart and Vascular Provider 06/21/21 04/02/22 Reji Jessica MD [address] [place] [address] Assigned Heart and Vascular Provider 04/03/22 05/14/22 Napoleon Johnson MD Assigned Heart and Vascular Provider 05/15/22 06/25/22 Rashmi Ennis APRN IMPOSER [address] [place] [address] Nurse Practitioner Cardiovascular Disease 06/17/22 Rashmi Ennis APRN IMPOSER [address] [place] [address] Assigned Heart and Vascular Provider 06/26/22 08/20/22 Napoleon Johnson MD Assigned Heart and Vascular Provider 08/21/22 08/27/22 Rashmi Ennis APRN IMPOSER [address] [place] [address] Assigned Heart and Vascular Provider 08/28/22 11/05/22 Napoleon Johnson MD Assigned Heart and Vascular Provider 11/06/22 documented as of this encounter
--- OUTSIDE RECORDS SUMMARY | 2024-09-17 16:11 | XMS_ITS | Clinical Summary ---
Author Organization [facility] Address [address] [place] [id number] Care Team Providers Care Hotel Recreational Facilities Manager Name Role Phone Carolina Alex MD Unavailable [phone] Enoc Rossi DO Primary Care Provider Rashmi Ennis APRN FISCAL SPECIALIST Unavailable [phone] Napoleon Johnson MD Unavailable Unavailab le Allergies Active Allergy Reactions Criticality Noted Date Comments Ciprofloxacin Rash Low 03/28/2024 Dust Mites Unknown 08/12/2023 Lactose Diarrhea 12/12/2015 Furosemide Rash Low 02/10/2024 Other Drug Allergy (See Comments) Blisters 11/09/2023 Polymem Wound Dressing; per daughter patient broke out with Blisters Pneumococcal 13-Deloris Conj Vacc Muscle Pain (Myalgia) 12/12/2015 Pneumococcal Polysaccharide Vaccine Cramps 10/02/2013 Shoulder/arm muscle tightened up a lot Torsemide Rash Low 03/28/2024 Medications aspirin 81 MG tablet Take 81 mg by mouth daily Active CALCIUM-MAGNESIUM PO Take 1 tablet by mouth 2 times daily Active IBUPROFEN PO Take 400 mg by mouth nightly as needed Active ALFALFA PO Take 5 tablets by mouth 2 times daily Active fexofenadine (SIN) 180 MG tablet Take 180 mg by mouth every evening as needed Active sodium chloride (OCEAN) 0.65 % nasal spray Toone 1 spray into both nostrils daily as needed for congestion Active Alpha Lipoic Acid 200 MG CAPS Take 1 capsule by mouth 2 times daily Active UNABLE TO FIND 1 tablet 2 times daily MEDICATION NAME: CARDIOAUXIN - Niacin, pantesin pantethine, phytosterols, policosanol Active Methylsulfonylmeth ane (MSM) 1000 MG TABS Take 2,000 mg by mouth daily Active carvedilol (COREG) 6.25 MG tabletIndications: Non-STEMI (non-ST elevated myocardial infarction) (H) Take 1 tablet (6.25 mg) by mouth 2 times daily (with meals) 180 tablet 3 09/07/19 19 Active cholecalciferol (D--WESTON, VITAMIN D3) 10 mcg/mL (400 units/mL) LIQD liquid Take 30 mcg by mouth daily 1200 units daily Active betamethasone dipropionate (DIPROSONE) 0.05 % external ointmentIndication s:Ulcer of right leg, with fat layer exposed (H),Varicose veins of bilateral lower extremities with other complications,Swel ling of limb Apply topically daily 100 g 2 02/04/20 21 Active Dermatological Products, Misc. (EPICERAM) EMULIndications:Ul cer of right leg, with fat layer exposed (H),Non-pressure chronic ulcer of right calf with fat layer exposed (H) Externally apply 1 Applicatorful topically daily 450 g 11 02/04/20 21 Active Magnesium Glycinate 100 MG CAPS Take by mouth as needed 120mg capsules Active losartan (COZAAR) 25 MG tablet Take 25 mg by mouth daily 180 tablet 3 02/19/20 22 Active benzonatate (TESSALON) 100 MG capsuleIndications :Upper respiratory tract infection, unspecified type,Bronchitis Take 1 capsule (100 mg) by mouth 3 times daily as needed for cough 20 capsule 04/23/20 22 Active guaiFENesin (MUCINEX) 600 MG 12 hr tabletIndications: Upper respiratory tract infection, unspecified type,Bronchitis Take 2 tablets (1,200 mg) by mouth 2 times daily as needed for congestion 14 tablet 04/23/20 22 Active spironolactone (ALDACTONE) 25 MG tabletIndications: Essential hypertension, benign Take 1 tablet (25 mg) by mouth daily 90 tablet 4 10/19/19 24 Active rosuvastatin (CRESTOR) 10 MG tabletIndications: Mixed hyperlipidemia Take 1 tablet (10 mg) by mouth at bedtime 90 tablet 3 10/31/19 24 Active Active Problems Problem Noted Date Diagnosed Date Nonhealing ulcer of left lower leg with fat laye r exposed 09/27/2023 Class 2 severe obesity due t o excess calories with serious comorbidity and body mass index (BMI) of 35.0 to 35.9 in adult 11/03/2022 Chronic cough 04/21/2022 Acute respiratory failure with hypoxia 2 Opacity of lung on imaging study 04/21/2022 Carcinoma of prostate 04/01/2021 Overview (04/01/2021): Mar 24, 2018 Entered By: DAYANA MENENDEZ Comment: XRT 2016 Low back pain 04/01/2021 Shoulder pain 04/01/2021 Overview (04/01/2021): Mar 24, 2018 Entered By: DAYANA MENENDEZ Comment: bilateral; rotator cuff Systolic murmur 11/24/2020 Transient ischemic attack 11/24/2020 Overview (02/03/2021): Mar 24, 2018 Entered By: DAYANA MENENDEZ Comment: aphasia ~1993 Peripheral edema 11/21/2019 Class 2 obesity due to exces s calories without serious comorbidity with body mass index (BMI) of 36.0 to 36.9 in adult 11/21/2019 Essential hypertension, benign 09/05/2018 Non-STEMI (non-ST elevated myocardial infarction ) 08/21/2016 Complete tear of right rotator cuff 07/14/2016 Left rotator cuff tear arthropathy 07/14/2016 Prostate cancer 12/12/2015 ACP (advance care planning) 07/04/2015 Overview (07/04/2015): Advance Care Planning 07/04/2015: Receipt of ACP document: Received: Health Care Directive which was witnessed or notarized on 12-22-08. Document previously scanned on 10-08-13. Also received HCD dated 03-16-96 scanned on 05-13-15 Validation form completed and sent to be scanned. Code Status reflects choices in most recent ACP document. Confirmed/documented designated decision maker(s). Added by Razia Toussaint RN, System Director ACP-Honoring Choices Coronary artery disease invo lving [place] coronary artery of [place] heart without angina pectoris 10/11/2014 Overview (10/11/2014): 2004 PTCA with intracoronary stent placement of, posterolateral branch 10/02/13Balloon angioplasty and stenting of the occluded stent in the distal right coronary artery Dyspnea on exertion 10/02/2013 Mixed hyperlipidemia 10/02/2013 Paroxysmal supraventricular tachycardia Resolved Problems Problem Noted Date Diagnosed Date Resolved Date Chronic heart failure with p reserved ejection fraction (HFpEF) 05/11/2022 05/11/2022 Ulcer of right leg, with fat layer exposed 12/16/2020 09/27/2023 Open wound of lower limb, le ft, initial encounter 12/16/2020 09/27/2023 Open wound of lower limb, ri ght, initial encounter 12/16/2020 09/27/2023 Noninfected skin tear of leg, right, sequela 09/27/2023 Bacterial sepsis 11/12/2020 09/27/2023 Cellulitis of right lower extremity 11/12/2020 09/27/2023 Chest pain 10/02/2013 10/11/2014 Unstable angina 10/02/2013 10/11/2014 Encounters Date Type Department Care Team Description 07/16/2024 2:45 PM CDT Therapy Visit [facility] [address] [address] Enoc Rossi, Farrah Orr, OT Lymphedema (Primary Dx) 07/16/2024 Travel 07/10/2024 3:30 PM CDT Office Visit [facility] [place] [address] [place] [address] [address] [place] [address] Napoleon Johnson MD Class 2 obesity due to excess calories without serious comorbidity with body mass index (BMI) of 36.0 to 36.9 in adult (Primary Dx); Coronary artery disease involving [place] coronary artery of [place] heart without angina pectoris; Essential hypertension, benign; Mixed hyperlipidemia; Dyspnea on exertion; Peripheral edema 07/09/2024 12:15 PM CDT Lab [facility] [address] [facility] [address] [place] [address] Mixed hyperlipidemia; Coronary artery disease involving [place] coronary artery of [place] heart without angina pectoris; Essential hypertension, benign 07/09/2024 Travel 07/02/[address] [place] [address] Napoleon Johnson MD Orders (Fasting labs ) from Last 3 Months Immunizations Immunization Administration Dates Next Due TDAP (Adacel,Boostrix) 11/12/2020 Family History Medical History Relation Comments Cancer Brother 1 Bladder Cancer Brother 2 Heart Disease Brother 2 Prostate Cancer Brother 2 Skin Cancer Brother 3 Alzheimer Disease Father Heart Disease Mother natural causes Colon Cancer No family hx of Relation Status Comments Brother 1 Brother 2 Alive Brother 3 Alive Father Mother Social History Tobacco Use Types Packs/Day Years Used Date Smoking Tobacco: Never Smokeless Tobacco: Never Tobacco Cessation:Counseling Given: Not Answered Comments:Pt states he has never smoked Alcohol Use Standard Drinks/Week Comments Yes 4 (1 standard drink = 0.6 oz pur e alcohol) 4 shots a week PHQ-2 Answer Date Recorded PHQ-2 Score 0 08/12/2023 Adolescent Education Answer Date Record ed Getting School Help Needed Not on file 01/30 Sex and Gender Information Value Date Recorded Sex Assigned at Male 03/09/2021 1:10 PM AERONAUTICAL ENGINEERING TEACHER Legal Sex Male 3:26 AM AERONAUTICAL ENGINEERING TEACHER Gender Identity Male 03/09/2021 1:10 PM AERONAUTICAL ENGINEERING TEACHER Sexual Orientation Straight 03/09/2021 1: 10 PM AERONAUTICAL ENGINEERING TEACHER Last Filed Vital Signs Vital Sign Reading Time Taken Comments Blood Pressure 152/84 07/10/2024 3:27 PM CDT Pulse 72 07/10/2024 3:27 PM CDT Temperature 35.9 C (96.7 F) 12/07/2023 1:48 PM CDT Respiratory Rate 16 12/07/2023 1:48 PM CDT Oxygen Saturation 100% 11/30/2023 5:30 PM CDT Inhaled Oxygen Concentration - - Weight 122.1 kg (269 lb 3.2 oz) 07/10/2024 3:27 PM CDT Height 182.9 cm (6') 07/10/2024 3:27 PM CDT Body Mass Index 36.51 07/10/2024 3:27 PM CDT Plan of Treatment Health Maintenance Due Date Last Done Comments ADVANCE CARE PLANNING 1935 ANNUAL REVIEW OF HM ORDERS 1935 Pneumococcal Vaccine: 50+ Years (1 of 2 - PCV) 02/07/1956 ZOSTER IMMUNIZATION (1 of 2) 1987 FALL RISK ASSESSMENT 2002 RSV VACCINE (1 - 1-dose 75+ series) 02/07/2012 COVID-19 Vaccine ( - season) 2023 MEDICARE ANNUAL WELLNESS VISIT 02/24/2024 02/23/2023, 02/25/2022, 02/24/2021 INFLUENZA VACCINE (Season Ended) 2024 02/19/2022, 01/30/2021, 01/10/2020, Additional history exists BMP 07/09/2025 07/09/2024, 01/23, 11/30/2023, Additional history exists LIPID 07/09/2025 07/09/2024, 11/23, 02/12/2022, Additional history exists DTAP/TDAP/TD IMMUNIZATION (2 - Td or Tdap) 11/12/2030 11/12/2020, 08/27/2010 PHQ-2 (once per calendar year) Completed 07/10/2024, 08/12/2023, 11/03/2022 HPV IMMUNIZATION Aged Out No longer e ligible based on patient's age to complete this topic MENINGITIS IMMUNIZATION Aged Out No l onger eligible based on patient's age to complete this topic Procedures Procedure Name Priority Date/Time Associated Diagnosis Comments BASIC METABOLIC PANEL Routine 07/09/2024 12:05 PM CDT Mixed hyperlipidemia Coronary artery disease involving [place] coronary artery of [place] heart without angina pectoris Essential hypertension, benign ALT Routine 07/09/2024 12:05 PM CDT Mixed hyperlipidemia Coronary artery disease involving [place] coronary artery of [place] heart without angina pectoris Essential hypertension, benign LIPID PROFILE Routine 07/09/2024 12:05 PM CDT Mixed hyperlipidemia Coronary artery disease involving [place] coronary artery of [place] heart without angina pectoris Essential hypertension, benign from Last 3 Months Results * (ABNORMAL) Lipid Profile (07/09/2024 12:05 PM CDT) Cholesterol 133 <200 mg/dL 07/09/2024 10:23 PM CDT [facility] Triglycerides 208(H) <150 mg/dL 07/09/2024 10:23 PM CDT [facility] Direct Measure HDL 36(L) >=40 mg/dL 07/09/2024 10:23 PM CDT [facility] LDL Cholesterol Calculated 55 <100 mg/dL 07/09/2024 10:23 PM CDT [facility] Non HDL Cholesterol 97 <130 mg/dL 07/09/2024 10:23 PM CDT [facility] Patient Fasting > 8hrs? Yes 07/09/2024 10:23 PM CDT [facility] Blood STRUCTURE OF RIGHT UPPER LIMB / Unknown Venipuncture / Unknown 07/09/2024 12:05 PM CDT 07/09/2024 12:38 PM CDT Narrative [facility] - 07/09/2024 10:23 PM CDT Cholesterol Desirable: < 200 mg/dL Borderline High: 200 - 239 mg/dL High: >= 240 mg/dL Triglycerides Normal: < 150 mg/dL Borderline High: 150 - 199 mg/dL High: 200-499 mg/dL Very High: >= 500 mg/dL Direct Measure HDL Female: >= 50 mg/dL Male: >= 40 mg/dL LDL Cholesterol Desirable: < 100 mg/dL Above Desirable: 100 - 129 mg/dL Borderline High: 130 - 159 mg/dL High: 160 - 189 mg/dL Very High: >= 190 mg/dL Non HDL Cholesterol Desirable: < 130 mg/dL Above Desirable: 130 - 159 mg/dL Borderline High: 160 - 189 mg/dL High: 190 - 219 mg/dL Very High: >= 220 mg/dL us Napoleon Johnson MD LAB - BLOOD ORDERABLES Fin al Result [facility] [address], [address] [place] [address] [address] Lab (1st floor, no room number) [place] [address] * ALT (07/09/2024 12:05 PM CDT) ALT 19 0 - 70 U/L 07/09/2024 1:2 7 PM CDT LABORATORY Blood STRUCTURE OF RIGHT UPPER LIMB / Unknown Venipuncture / Unknown 07/09/2024 12:05 PM CDT 07/09/2024 12:38 PM CDT Napoleon Johnson MD LAB - BLOOD ORDERABLES Fin al Result [facility] [address] Lab (1st floor, no room number) [place] [address] * Basic metabolic panel (07/09/2024 12:05 PM CDT) Sodium 137 135 - 145 mmol/L 07/09/2024 1:27 PM CDT LABORATORY Potassium 4.3 3.4 - 5.3 mmol/L 07/09/2024 1:27 PM CDT [facility] Chloride 103 98 - 107 mmol/L 07/09/2024 1:27 PM CDT LABORATORY Carbon Dioxide (CO2) 23 22 - 29 mmol/L 07/09/2024 1:27 PM CDT [facility] Anion Gap 11 7 - 15 mmol/L 07/09/2024 1:27 PM CDT [facility] Urea Nitrogen 17.9 8.0 - 23.0 mg/dL 07/09/2024 1:27 PM CDT [facility] Creatinine 0.95 0.67 - 1.17 mg/dL 07/09/2024 1:27 PM CDT [facility] GFR Estimate 77 >60 mL/min/1.7 3m2 07/09/2024 1:27 PM CDT [facility] Comment:eGFR calculated usin 2020 CKD-EPI equation. Calcium 9.1 8.8 - 10.4 mg/dL 07/09/2024 1:27 PM CDT [facility] Glucose 96 70 - 99 mg/dL 07/09/2024 1:27 PM CDT [facility] Blood STRUCTURE OF RIGHT UPPER LIMB / Unknown Venipuncture / Unknown 07/09/2024 12:05 PM CDT 07/09/2024 12:38 PM CDT us Napoleon Johnson MD LAB - BLOOD ORDERABLES Fin al Result [facility] [address] [facility] Lab (1st floor, no room number) [place] [address], [facility] from Last 3 Months Insurance MEDICARE [facility] [place] MEDICARE SUPPLEMENT MEDICARE [facility] MEDICARE SUPPLEMENT Advance Directives For more information, please contact: [phone] Documents on File Type Date Recorded Patient Race Board Attendant Expl anation Advance Directives and Living Will 05/23/2015 11:14 AM HEALTH CARE DIRECTIV E 03/16/1996 Advance Directives and Living Will 10/08/2013 HEALTH CARE DIRECTIV E 11/25/08 * No CPR- Do NOT Intubate (Latest Code Status on File) Date Activated Date Inactivated Comments 04/21/2022 2:20 PM 04/23/2022 3:57 PM NO basic o r advanced life-sustaining interventions are performed Question Answer Comments Code status determined by: Discussion with patie nt/ legal decision maker * Full Code Date Activated Date Inactivated Comments 11/12/2020 7:54 PM 11/17/2020 3:26 PM All basic an d advanced life-sustaining interventions are performed as appropriate Question Answer Comments Code status determined by: Discussion with trip nt/ legal decision maker * Full Code Date Activated Date Inactivated Comments 08/25/2016 12:26 PM 11/12/2020 5:12 PM * Full Code Date Activated Date Inactivated Comments 08/21/2016 11:38 AM 08/25/2016 12:26 PM * Full Code Date Activated Date Inactivated Comments 10/03/2013 3:22 PM 08/21/2016 11:38 AM Care Teams Hotel Recreational Facilities Manager Relationship Specialty [place] [address] [place] [address] PCP - General Family Medicine 06/16/21 Carolina Alex MD [address] [place] [address] Hematology & Oncology 11/18/15 Rashmi Ennis APRN FISCAL SPECIALIST [address] [place] [address] Nurse Practitioner Cardiovascular Disease 06/17/22 Napoleon Johnson MD Assigned Heart and Vascular Provider 11/06/22
--- OUTSIDE RECORDS SUMMARY | 2024-09-17 16:11 | XMS_ITS | Patient Health Record ---
Author Organization [facility] Address [address] [place] [address] [address] [place] [address] Care Team Providers Care Metal Burrer Name Role Phone Enid MELTON Enoc Primary Care Provider Lex Mccarthy Unavailable [phone] Allergies Allergen (clinical drug ingredient) Drug/Non Drug Allergy documented on EMR Reaction Allergy Type Onset Date Status DUST (uncoded) Unknown Allergy Activ e Reason For Referral No Information Medications Medication SIG (Take, Route, Frequency, Duration) Notes Start Date End Date Status Saline Nasal [place] 0.65 % Nasal Active MSM 1000 MG Oral Active Losartan Potassium 25 MG TAKE 1 TABLET (25 MG) BY MOUTH 2 TIMES DAILY Oral #180, 90 days supply, Prescribed by AVIS BOWIE, Filled 08/25/2018 Active Rosuvastatin Calcium 5 MG TAKE 1 TABLET BY MOUTH EVERY DAY Oral #90, 90 days supply, Prescribed by AVIS BOWIE, Filled 09/13/2018 Active Clopidogrel Bisulfate 75 MG QD Oral Active 24HR Allergy Relief 180 MG Oral Active Blaine 650 MG Oral Activ e Tamsulosin HCl 0.4 MG TAKE 1 CAPSULE (0. 4 MG TOTAL) BY MOUTH DAILY AFTER BREAKFAST. Oral #90, 90 days supply, Prescribed by LION RANDOLPH, Filled 11/20/2018 Active Esvin-Mag 500-250 MG Oral A ctive Aspirin 81 MG QD Oral Active Carvedilol 6.25 MG TAKE 1 TABLET (6.25 MG) BY MOUTH 2 TIMES DAILY (WITH MEALS) Oral #180, 90 days supply, Prescribed by LAMONT EDWARDS, Filled 09/06/2018 Active Gabapentin 100 MG BID Oral Ac tive Alpha-Lipoic Acid 200 MG Oral Active Isosorbide Mononitrate ER 60 MG QD Oral Active Social History Tobacco Use: Social History Observation Description Date Details (start date - stop date) Never Smoker NA - NA Tobacco Use/Smoking: Question Answer Notes Are you a nonsmoker Alcohol Screen Question Answer Notes Did you have a drink contain ing alcohol in the past year? Yes How often did you have a dri nk containing alcohol in the past year? 2 to 4 times a month (2 points) How many drinks did you have on a typical day when you were drinking in the past year? 1 or 2 drinks (0 point) How often did you have 6 or more drinks on one occasion in the past year? Never (0 point) Points 2 Interpretation Negative Problems Problem Type SNOMED Code ICD Code Onset Dates Problem Status W/U Status Risk Notes Problem Rupture of right rotator cuff (74197362323620969) Unspecified rotator cuff tear or rupture of right shoulder, not specified as traumatic (M75.101) Active confirmed Problem Nontraumatic rupture of muscle or tendon structure of rotator cuff of left shoulder (disorder) (5157258026292748) Unspecified rotator cuff tear or rupture of left shoulder, not specified as traumatic (M75.102) Active confirmed Problem Abnormal gait (25519860) Unsteadiness on feet (R26.81) Active confirmed Problem Abnormal gait (18673642) Unspecified abnormalities of gait and mobility (R26.9) Active confirmed Problem Abnormal posture (48322492) Abnormal posture (R29.3) Active confirmed Problem Rotator cuff tear (609455476) Rotator cuff tear (M75.100) Active confirmed Problem Acquired spondylolisthesis (790360700) Spondylolisthesis , site unspecified (M43.10) Active confirmed Problem Cervical spondylosis without myelopathy (588709464) Other spondylosis, cervical region (M47.892) Active confirmed Problem Degeneration of lumbar intervertebral disc (14822273) Other intervertebral disc degeneration, lumbar region (M51.36) Active confirmed Problem Muscle atrophy (83531813) Muscle wasting and atrophy, not elsewhere classified, unspecified site (M62.50) Active confirmed Problem Enthesopathy of hip region (15730342) Trochanteric bursitis, unspecified hip (M70.60) Active confirmed Problem Fibromyalgia (316009905) Fibromyalgia (M79.7) 013 Active confirmed Problem Low back pain (737212151) Low back pain (M54.5) 013 Active confirmed Problem Cervicalgia (07368773) Cervicalgia (M54.2) 013 Active confirmed Plan Of Treatment No Information Insurance Providers Payer Name Payer Address Payer Phone Subscriber Number Group Number Insured Name Patient Relationship to Insured Coverage Start Date Coverage End Date Medicare Part B [employer] [address] [place] [address] [id number] Santos Soria Self - patient is the insured [address] [facility] [address] [address] [place] [address] [id number] Santos Soria Self - patient is the insured Medical (General) History Medical History History ICD Code Patient reports past medical history of Cancer, Heart Disease, Heart Attack, Hernia, Stroke/TIA, Hearing Loss, Spine Conditions Prostate CA 2016-completed 40 sessions of radiation. [place] 2017 Cardiac stents x 3 TIA years ago Hernia repair x 2
--- OUTSIDE RECORDS SUMMARY | 2024-09-17 16:11 | XMS_ITS | Encounter Summary ---
Author Organization [facility] Address [address] [place] [address] Care Team Providers Care Baseball Player Name Role Phone Primary Dr, Kate WILSON Primary Care Provider Lou vailable Yaima Drake MD Primary Care Provider + [phone] Napoleon Johnson MD Unavailable Unavailab Carolina Nettles MD Unavailable + [phone] Carolina Alex MD Unavailable + [phone] Candie Bonilla APRN DESIGN TRANSFERRER Unavailable +[phone] Reji Jessica MD Unavailable + [phone] Enoc Rossi DO Primary Care Provider [phone] Candie Bonilla APRN DESIGN TRANSFERRER Unavailable +[phone] Reji Jessica MD Unavailable + [phone] Napoleon Johnson MD Unavailable Unavailab Rashmi Rehman APRN DESIGN TRANSFERRER Unavailable +[phone] Rashmi Ennis APRN, CNP Unavailable [phone] Napoleon Johnson MD Unavailable Unavailab Rashmi Rehman APRN DESIGN TRANSFERRER Unavailable +[phone] Napoleon Johnson MD Unavailable Unavailab le Encounter Details Date Type Department Care Team (Late st Contact Info) Description 07/18/2003 Office Visit-[facility] [address] [place] [address] Unknown, DoctorMD Social History Tobacco Use Types Packs/Day Years Used Date Smoking Tobacco: Never Assessed Sex and Gender Information Value Date Recorded Sex Assigned at Male 03/09/2021 1:10 PM INFORMATION SECURITY CONSULTANT Legal Sex Male 3:26 AM INFORMATION SECURITY CONSULTANT Gender Identity Male 03/09/2021 1:10 PM INFORMATION SECURITY CONSULTANT Sexual Orientation Straight 03/09/2021 1: 10 PM INFORMATION SECURITY CONSULTANT documented as of this encounter Progress Notes * Unknown, DoctorMD - 07/23/2003 9:32 AM CST Progress Note Created by: REESE Denis [id number] DATE: 07/18/2003 CURLY SORIA DATE OF : 1935 AGE: [age] years old Referring Physician: YAIMA DRAKE Referring Clinic: [facility] FAX [id number] CURRENT DIAGNOSES 1. PTCA, v45.82 2. - CAD, 414.00 3. - Shortness of Breath, 786.05 4. 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 - Angina Pectoris, 413.9 ALLERGIES NKA MEDICATIONS 1. Danielle-Dec Multiple Vitamins with Minerals, 1 p.o. q.d. 2. Vitamin C 250 mg, 225 mg qd 3. garlic 270 mg, Dose/instruction UK 4. Aspirin Child 81 mg, 1 p.o. q.d. 5. Plavix 75 mg, 1 p.o. q.d. 6. Lipitor 20 mg, 1 p.o. q.d. 7. Atenolol 50 mg, 1 p.o. q.d. 8. Norvasc 10 mg, 1 p.o. q.d. 9. Nitroglycerin 0.4 mg, PRN CHIEF COMPLAINTS Followup of Hosp HISTORY OF PRESENT ILLNESS Mr. Curly Soria is a 68-year-old gentleman who is seen in clinic by Dr. Shelbi Avila for complaints of exertional chest pain. He underwent a nuclear stress test which was abnormal and underwent successful angioplasty and stenting of an occluded posterolateral branch with a drug-eluting stent approximately two weeks' ago. The patient was found to have normal left ventricular function at that time. The patient also has a known history of hypertension with other cardiac risk factors being only that of his age. Post discharge the patient was started on Lipitor 20 mg, as well as Plavix. The patient at this time has no complaints of headaches, dizziness, or lightheadedness. He has no chest pain, chest pressure, shortness of breath, orthopnea, PND, palpitations, calf pain, tenderness, or problems with peripheral edema. The patient's blood pressure today is 120/80. His weight is 224 and stable. His heart rate is 70 and regular without murmurs, rubs, gallops, or clicks. The patient's right groin site is well healed without bruit, bruising, or signs of infection. Please note the past medical history, review of systems, and other physical exam findings as noted below. 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 severe inferolateral ischemia with small nontransmural TN; EF decreases from from 54 to 50% rest to exercise. Left Ventricular Ejection Fraction: 50%% FAMILY HISTORY: Father - [employer]; Mother - pacemaker; CARDIAC RISK FACTORS Tobacco Abuse: negative; Family History of Heart Disease: negative; Hyperlipidemia: lipid status unknown; Hypertension: positive; Diabetes Mellitus: negative; Prior History of Heart Disease: negative; Obesity:negative; Sedentary Life Style:negative; Age:positive SOCIAL HISTORY Alcohol Use - drinks occasionally, wine and mixed drinks; Smoking - never smoked; Diet - regular diet without modifications and caffeine use-1-2 per day; Exercise - not right know; Seat Belt Use - always; Occupation - financial analyst accountant; Residence - lives with ; Place of - [place]; Hours Worked- 40 hours per week; REVIEW OF SYSTEMS GENERAL weight loss INTEGUMENTARY denies any change in hair or nails, rashes, or skin lesions. EYES wears eye glasses/contact lenses EARS, NOSE, THROAT, MOUTH denies any hearing loss, epistaxis, hoarseness or difficulty speaking. RESPIRATORY denies dyspnea, snoring, cough, wheezing or hemoptysis. CARDIOVASCULAR chest discomfort, palpitations ABDOMINAL denies ulcer disease, hematochezia or melena. MUSCULOSKELETAL pain back, joint pain NEUROLOGICAL tia in 1984 PSYCHIATRIC stress ENDOCRINE fatigue, polyuria, intolerance to heat HEMATOLOGICAL/IMMUNOLOGIC seasonal allergies PHYSICAL EXAMINATION VITAL SIGNS: Blood Pressure: 120/80 Sitting, Left arm, large cuff Pulse- 70.00/min. Weight- 224.00 lbs. Height- 72.00 Temperature- .00 CONSTITUTIONAL cooperative, alert and oriented,well developed, well nourished, in no acute distress. SKIN (R) groin well healed without bruit or signs of infection HEAD normocephalic, atraumatic EYES Pupils equal and round, conjunctivae and lids unremarkable, sclera white, no xanthalasma ENT no pallor or cyanosis, dentition good NECK carotid pulses are full and equal bilaterally, JVP normal, no carotid bruit, no thyromegaly CHEST normal symmetry, no tenderness to palpation, [...] PULSES pulses full and equal in all extremities, no bruits auscultated. EXTREMITIES & BACK no deformities, clubbing, cyanosis, erythema or edema observed. There are no spinal abnormalities noted. Normal muscle strength and tone. PSYCHIATRIC no difficulties with speech or language, normal memory NEUROLOGICAL no gross motor deficits noted, affect appropriate, oriented to time, person and place. MEDICATIONS UPDATED TODAY: Plavix 75 mg, 1 p.o. q.d., DIRECTED Lipitor 20 mg, 1 p.o. q.d., DIRECTED Atenolol 50 mg, 1 p.o. q.d., DIRECTED Norvasc 10 mg, 1 p.o. q.d., DIRECTED Nitroglycerin 0.4 mg, PRN, DIRECTED MEDICATION STOPPED TODAY: Atenolol 50 mg and Norvasc 10 mg IMPRESSIONS/PLAN 1. Coronary artery disease with recent PTCA and stenting of the posterolateral branch. The patient was encouraged at this time to start a routine exercise plan that will work its way up to being fourto five days a week, approximately 40 minutes every day. The patient is attempting to follow a low fat, low salt, low cholesterol diet. He is scheduled to come back in one month's time for reevaluation of his cholesterol while on Lipitor. The patient is also scheduled to follow up with Dr. Shelbi Avila on August 12. 2. The patient and his had multiple questions in regard to coronary artery disease, homocysteine levels, placement of the stenting, which were all provided. 3. Hypertension, adequately controlled at this time. We will make no adjustments. It has been a pleasure participating in Mr. Soria's care. If you have any questions or concerns regarding today's evaluation, please do not hesitate to call. TODAYS ORDERS 1. Homocysteine 1 month REESE Denis documented in this encounter Plan of Treatment Not on file documented as of this encounter Visit Diagnoses Not on filedocumented in this encounter Additional Health Concerns Infection Onset Date Last Indicated Resolved Time Rule Out COVID-19 04/21/2022 04/21/2022 04/21/2022 8:12 AM INFORMATION SECURITY CONSULTANT documented as of this encounter Care Teams Baseball Player Relationship Specialty Start Date End Date Primary Kate Pitts MD PCP - General 01/05/11 01/05/12 Yaima Drake MD [facility] [address] [place] [address] PCP - General Family Practice 01/06/12 06/15/21 [place] [address] [place] [address] PCP - General Family Medicine 06/16/21 Napoleon Johnson MD Assigned Heart and Vascular Provider 02/15/20 01/24/21 Carolina Alex MD [address] [place] [address] Hematology & Oncology 11/18/15 Carolina Alex MD [address] [facility] [place] [address] Assigned Cancer Care Provider 11/07/20 08/29/21 Candie Bonilla APRN DESIGN TRANSFERRER [address] [facility] [address] [place] [address] Assigned Heart and Vascular Provider 01/25/21 03/14/21 Reji Jessica MD [address] [place], [place] [address] Assigned Heart and Vascular Provider 03/15/21 06/20/21 Candie Bonilla APRN DESIGN TRANSFERRER [address] [place] [address] Assigned Heart and Vascular Provider 06/21/21 04/02/22 Reji Jessica MD [address] [place] [address] Assigned Heart and Vascular Provider 04/03/22 05/14/22 Napoleon Johnson MD Assigned Heart and Vascular Provider 05/15/22 06/25/22 Rashmi Ennis APRN DESIGN TRANSFERRER [address] [place] [address] Nurse Practitioner Cardiovascular Disease 06/17/22 Rashmi Ennis APRN DESIGN TRANSFERRER [address] [place] [address] Assigned Heart and Vascular Provider 06/26/22 08/20/22 Napoleon Johnson MD Assigned Heart and Vascular Provider 08/21/22 08/27/22 Rashmi Ennis APRN DESIGN TRANSFERRER [address] [place] [address] Assigned Heart and Vascular Provider 08/28/22 11/05/22 Napoleon Johnson MD Assigned Heart and Vascular Provider 11/06/22 documented as of this encounter
--- OUTSIDE RECORDS SUMMARY | 2024-09-17 16:11 | XMS_ITS | Encounter Summary ---
Author Organization [facility] Address [address] [place] [address] Care Team Providers Care Certified Paralegal Name Role Phone Primary Dr, Kate WILSON Primary Care Provider Lou vailable Yaima Drake MD Primary Care Provider + [phone] Napoleon Johnson MD Unavailable Unavailab Carolina Nettles MD Unavailable + [phone] Carolina Alex MD Unavailable + [phone] Candie Bonilla APRN CONVEYOR INSTALLER Unavailable +[phone] Reji Jessica MD Unavailable + [phone] Enoc Rossi DO Primary Care Provider [phone] Candie Bonilla APRN CONVEYOR INSTALLER Unavailable +[phone] Reji Jessica MD Unavailable + [phone] Napoleon Johnson MD Unavailable Unavailab Rashmi Rehman APRN CONVEYOR INSTALLER Unavailable +[phone] Rashmi Ennis APRN, CNP Unavailable +[phone] Napoleon Johnson MD Unavailable Unavailab Rashmi Rehman APRN CONVEYOR INSTALLER Unavailable +[phone] Napoleon Johnson MD Unavailable Unavailab le Encounter Details Date Type Department Care Team (Late st Contact Info) Description 07/02/2003 Office Visit-[facility] [place] [id number] [place] [address] Unknown, DoctorMD Social History Tobacco Use Types Packs/Day Years Used Date Smoking Tobacco: Never Assessed Sex and Gender Information Value Date Recorded Sex Assigned at Male 03/09/2021 1:10 PM DISTRIBUTION TECH Legal Sex Male 3:26 AM DISTRIBUTION TECH Gender Identity Male 03/09/2021 1:10 PM DISTRIBUTION TECH Sexual Orientation Straight 03/09/2021 1: 10 PM DISTRIBUTION TECH documented as of this encounter Progress Notes * Unknown, DoctorMD - 07/02/2003 5:35 PM CST Progress Note Created by: Shelbi Avila MD DATE: 07/02/2003 CURLY SORIA DATE OF : 1935 AGE: [age] years old Referring Physician: YAIMA DRAKE Referring Clinic: [facility] FAX [id number] CURRENT DIAGNOSES 1. - Angina Pectoris, 413.9 2. - Shortness of Breath, 786.05 3. 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 Atenolol 50 mg, Dose/instruction UK 2. Norvasc 10 mg, Dose/instruction UK 3. Danielle-Dec Multiple Vitamins with Minerals, 1 p.o. q.d. 4. Vitamin C 250 mg, 225 mg qd 5. garlic 270 mg, Dose/instruction UK 6. Aspirin Child 81 mg, 1 p.o. q.d. CHIEF COMPLAINTS Abnormal nuclear stress and Chest pressure HISTORY OF PRESENT ILLNESS This is a very pleasant 68 yo male who first noted prolonged chest pressure after rigorous outdoor work the day before . Since then he has noted this pressure (like my lungs are overstressed) with physical exertion. He has no prolonged episodes and the discomfort abates as soon as he stops doing whatever causes it. He had a stress echo in 2001 that was normal except for LVH. Because of his new Sx. Dr. Drake ordered a nuclear stress test (06/26) which showed a small inferiornontansmural infarct with a moderately severe area of inferolateral ischemia. His EF decreased from54% @ rest to 50% with exercise. EKG show SB with slight T wave inversion in the inferior leads. 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 severe inferolateral ischemia with small nontransmural W[place]; EF decreases from from 54 to 50% [...] caffeine use-1-2 per day; Exercise - some exercise and club; Seat Belt Use - always; Occupation - corporate accountant; Residence - lives with ; Place of - [place]; Hours Worked - 40 hours per week; REVIEW OF SYSTEMS GENERAL denies recent weight loss, weight gain, fever or chills or change in exercise tolerance. INTEGUMENTARY denies any change in hair or nails, rashes, or skin lesions. EYES wears eye glasses/contact lenses EARS, NOSE, THROAT, MOUTH denies any hearing loss, epistaxis, hoarseness or difficulty speaking. RESPIRATORY dyspnea with exertion CARDIOVASCULAR See HPI ABDOMINAL denies ulcer disease, hematochezia or melena. MUSCULOSKELETAL pain back NEUROLOGICAL tia in 1983 PSYCHIATRIC stress ENDOCRINE fatigue, polyuria, intolerance to heat HEMATOLOGICAL/IMMUNOLOGIC seasonal allergies PHYSICAL EXAMINATION VITAL SIGNS: Blood Pressure: 130/74 Sitting, Left arm, large cuff Pulse- 70.00/min. Weight- 226.00 lbs. Height- 72.00 Temperature- .00 CONSTITUTIONAL cooperative, alert and oriented,well developed, well nourished, in no acute distress. SKIN warm and dry to touch, no apparent skin lesions, or masses noted. HEAD normocephalic, atraumatic EYES Pupils equal and [...] time, person and place. MEDICATIONS UPDATED TODAY: Atenolol 50 mg, Dose/instruction UK, DIRECTED Norvasc 10 mg, Dose/instruction UK, DIRECTED Danielle-Dec Multiple Vitamins with Minerals, 1 p.o. q.d., DIRECTED Vitamin C 250 mg, 225 mg qd, DIRECTED garlic 270 mg, Dose/instruction UK, DIRECTED Aspirin Child 81 mg, 1 p.o. q.d., DIRECTED IMPRESSIONS: This gentleman has significant CAD and probably suffered a nontransmural infarct chopping down trees before the blizzard. His chest discomfort since then has continued to beonly with exertion but is occurring more frequently and with less provocation. I have recommended coronary angiography. I have explained the procedure in detail to Mr. Soria and his to include thw attendant risks(bleeding, [place], CVA, and ) as well as the potential therapeutic implications (PCI or CABG). They asked appropriate questions and seemed to comprehend and are agreeable to proceed. THIS PATIENT HAS A SEVERE LS SPINE ABNORMALITY THAT MAKES IT ALMOST IMPOSSIBLE FOR HIM TO LIE FLAT FOR ANY LENGTH OF TIME. His procedure will need to be performed via the arm approach for this reason. Shelbi Avila MD documented in this encounter Plan of Treatment Not on file documented as of this encounter Visit Diagnoses Not on filedocumented in this encounter Additional Health Concerns Infection Onset Date Last Indicated Resolved Time Rule Out COVID-19 04/21/2022 04/21/2022 04/21/2022 8:12 AM DISTRIBUTION TECH documented as of this encounter Care Teams Certified Paralegal Relationship Specialty Start Date End Date Primary Kate Pitts MD PCP - General 01/05/11 01/05/12 Yaima Drake MD [facility] [address] [place] [id number] PCP - General Family Practice 01/06/12 06/15/21 [place] [address] [place] [phone] PCP - General Family Medicine 06/16/21 Napoleon Johnson MD Assigned Heart and Vascular Provider 02/15/20 01/24/21 Carolina Alex MD [address] [place] [address] Hematology & Oncology 11/18/15 Carolina Alex MD [address] [place] [address] Assigned Cancer Care Provider 11/07/20 08/29/21 Candie Bonilla APRN CONVEYOR INSTALLER [address] [place] [address] Assigned Heart and Vascular Provider 01/25/21 03/14/21 Reji Jessica MD [address] [place] [address] Assigned Heart and Vascular Provider 03/15/21 06/20/21 Candie Bonilla APRN CONVEYOR INSTALLER [address] [place] [address] Assigned Heart and Vascular Provider 06/21/21 04/02/22 Reji Jessica MD [address] [place] [address] Assigned Heart and Vascular Provider 04/03/22 05/14/22 Napoleon Johnson MD Assigned Heart and Vascular Provider 05/15/22 06/25/22 Rashmi Ennis APRN CONVEYOR INSTALLER [address] [place] [address] Nurse Practitioner Cardiovascular Disease 06/17/22 Rashmi Ennis APRN CONVEYOR INSTALLER [address] [place] [address] Assigned Heart and Vascular Provider 06/26/22 08/20/22 Napoleon Johnson MD Assigned Heart and Vascular Provider 08/21/22 08/27/22 Rashmi Ennis APRN CONVEYOR INSTALLER [address] [place] [address] Assigned Heart and Vascular Provider 08/28/22 11/05/22 Napoleon Johnson MD Assigned Heart and Vascular Provider 11/06/22 documented as of this encounter
--- OUTSIDE RECORDS SUMMARY | 2024-09-17 16:11 | XMS_ITS | Encounter Summary ---
Author Organization [facility] Address [address] [place] [address] Care Team Providers Care Dike Supervisor Name Role Phone Carolina Alex MD Unavailable + [phone] Carolina Alex MD Unavailable + [phone] Reji Jessica MD Unavailable + [phone] Enoc Rossi DO Primary Care Provider [phone] Candie Bonilla APRN ELECTRICAL MAINTENANCE SUPERVISOR Unavailable +[phone] Reji Jessica MD Unavailable + [phone] Napoleon Johnson MD Unavailable Unavailab Rashmi Rehman APRN ELECTRICAL MAINTENANCE SUPERVISOR Unavailable +[phone] Rashmi Ennis APRN ELECTRICAL MAINTENANCE SUPERVISOR Unavailable +[phone] Napoleon Johnson MD Unavailable Unavailab Rashmi Rehman APRN ELECTRICAL MAINTENANCE SUPERVISOR Unavailable +[phone] Napoleon Johnson MD Unavailable Unavailab jostin Encounter Details Date Type Department Care Team (Late st Contact Info) Description 06/18/2021 [facility] [address] [place] [address] Torrie Thomson, RN Social History Tobacco Use Types Packs/Day Years Used Date Smoking Tobacco: Never Smokeless Tobacco: Never Comments:Pt states he has ne sabrina smoked Alcohol Use Standard Drinks/Week Comments Yes 0 (1 standard drink = 0.6 oz pur e alcohol) 2 shots per night Sex and Gender Information Value Date Recorded Sex Assigned at Male 03/09/2021 1:10 PM BLIND AIDE Legal Sex Male 3:26 AM BLIND AIDE Gender Identity Male 03/09/2021 1:10 PM BLIND AIDE Sexual Orientation Straight 03/09/2021 1: 10 PM BLIND AIDE COVID-19 Exposure Response Date Recorded In the last month, have you been in contact with someone who was confirmed or suspected to have Coronavirus / COVID-19? No / Unsure 06/16/2021 9:58 AM BLIND AIDE documented as of this encounter Plan of Treatment Not on file documented as of this encounter Visit Diagnoses Not on filedocumented in this encounter Additional Health Concerns Infection Onset Date Last Indicated Resolved Time Rule Out COVID-19 04/21/2022 04/21/2022 04/21/2022 8:12 AM BLIND AIDE documented as of this encounter Care Teams Dike Supervisor Relationship Specialty [place] [address] [facility] [place] [address] PCP - General Family Medicine 06/16/21 Carolina Alex MD [address] [place] [address] Hematology & Oncology 11/18/15 Carolina Alex MD [address] [place] [address] Assigned Cancer Care Provider 11/07/20 08/29/21 Reji Jessica MD [address] [address] Assigned Heart and Vascular Provider 03/15/21 06/20/21 Candie Bonilla APRN ELECTRICAL MAINTENANCE SUPERVISOR [address] [place] [address] Assigned Heart and Vascular Provider 06/21/21 04/02/22 Reji Jessica MD [address] [place], [place] [address] Assigned Heart and Vascular Provider 04/03/22 05/14/22 Napoleon Johnson MD Assigned Heart and Vascular Provider 05/15/22 06/25/22 Rashmi Ennis APRN ELECTRICAL MAINTENANCE SUPERVISOR [address] [place] [address] Nurse Practitioner Cardiovascular Disease 06/17/22 Rashmi Ennis APRN ELECTRICAL MAINTENANCE SUPERVISOR [address] [place] [address] Assigned Heart and Vascular Provider 06/26/22 08/20/22 Napoleon Johnson MD Assigned Heart and Vascular Provider 08/21/22 08/27/22 Rashmi Ennis APRN ELECTRICAL MAINTENANCE SUPERVISOR [address] [place] [address] Assigned Heart and Vascular Provider 08/28/22 11/05/22 Napoleon Johnson MD Assigned Heart and Vascular Provider 11/06/22 documented as of this encounter
--- OUTSIDE RECORDS SUMMARY | 2024-09-17 16:11 | XMS_ITS | Encounter Summary ---
Author Organization [facility] Address [address] [place] [address]. [place] [address] Care Team Providers Care Knit Goods Cutter Hand Name Role Phone Vick Blackwood MD Primary Care Provider + [phone] Carolina Alex MD Unavailable + [phone] Carolina Alex MD Unavailable + [phone] Reji Jessica MD Unavailable + [phone] Enoc Rossi DO Primary Care Provider [phone] Candie Bonilla APRN FIELD CLERK Unavailable +[phone] Reji Jessica MD Unavailable + [phone] Napoleon Johnson MD Unavailable Unavailab Rashmi Rehman APRN FIELD CLERK Unavailable [phone] Rashmi Ennis APRN FIELD CLERK Unavailable +[phone] Napoleon Johnson MD Unavailable Unavailab Rashmi Rehman APRN FIELD CLERK Unavailable +[phone] Napoleon Johnson MD Unavailable Unavailab le Encounter Details Date Type Department Care Team (Late st Contact Info) Description 05/01/2021 [facility] Radiation Oncology [address] [address] Carolina Alex MD [address] [place] [address] Social History Tobacco Use Types Packs/Day Years Used Date Smoking Tobacco: Never Smokeless Tobacco: Never Comments:Pt states he has ne sabrina smoked Alcohol Use Standard Drinks/Week Comments Yes 0 (1 standard drink = 0.6 oz pur e alcohol) 2 shots per night Sex and Gender Information Value Date Recorded Sex Assigned at Male 03/09/2021 1:10 PM ONCOLOGY TRANSPLANT NETWORK MANAGER Legal Sex Male 3:26 AM ONCOLOGY TRANSPLANT NETWORK MANAGER Gender Identity Male 03/09/2021 1:10 PM ONCOLOGY TRANSPLANT NETWORK MANAGER Sexual Orientation Straight 03/09/2021 1: 10 PM ONCOLOGY TRANSPLANT NETWORK MANAGER COVID-19 Exposure Response Date Recorded In the last month, have you been in contact with someone who was confirmed or suspected to have Coronavirus / COVID-19? No / Unsure 04/16/2021 12:35 PM ONCOLOGY TRANSPLANT NETWORK MANAGER documented as of this encounter Plan of Treatment Not on file documented as of this encounter Visit Diagnoses Not on filedocumented in this encounter Additional Health Concerns Infection Onset Date Last Indicated Resolved Time Rule Out COVID-19 04/21/2022 04/21/2022 04/21/2022 8:12 AM ONCOLOGY TRANSPLANT NETWORK MANAGER documented as of this encounter Care Teams Knit Goods Cutter Hand Relationship Specialty Start Date End Date Vick Blackwood MD [facility] [address] [place] [address] PCP - General Family Practice 01/06/12 06/15/21 [place] [address] [place] [address] PCP - General Family Medicine 06/16/21 Carolina Alex MD [address] [place] [address] Hematology & Oncology 11/18/15 Carolina Alex MD [address] [place] [address] Assigned Cancer Care Provider 11/07/20 08/29/21 Reji Jessica MD [address] [place] [address] Assigned Heart and Vascular Provider 03/15/21 06/20/21 Candie Bonilla APRN FIELD CLERK [address] [place], [place] [address] Assigned Heart and Vascular Provider 06/21/21 04/02/22 Reji Jessica MD [address] [place] [address] Assigned Heart and Vascular Provider 04/03/22 05/14/22 Napoleon Johnson MD Assigned Heart and Vascular Provider 05/15/22 06/25/22 Rashmi Ennis APRN FIELD CLERK [address] [place] [address] Nurse Practitioner Cardiovascular Disease 06/17/22 Rashmi Ennis APRN FIELD CLERK [address] [place] [address] Assigned Heart and Vascular Provider 06/26/22 08/20/22 Napoleon Johnson MD Assigned Heart and Vascular Provider 08/21/22 08/27/22 Rashmi Ennis APRN FIELD CLERK [address] [place] [address] Assigned Heart and Vascular Provider 08/28/22 11/05/22 Napoleon Johnson MD Assigned Heart and Vascular Provider 11/06/22 documented as of this encounter
--- OUTSIDE RECORDS SUMMARY | 2024-09-17 16:11 | XMS_ITS | Encounter Summary ---
Author Organization [facility] Address [address] [place] [address]. [place] [address] Care Team Providers Care Machine Deburrer Name Role Phone Carolina Alex MD Unavailable +- [phone] Enoc Rossi DO Primary Care Provider [phone] Rashmi Ennis APRN TRAFFIC CONTROL SPECIALIST Unavailable Rashmi Ennis CONSULTING ACTUARY TRAFFIC CONTROL SPECIALIST Unavailable [phone] Napoleon Johnson MD Unavailable Unavailab le Encounter Details Date Type Department Care Team (Late st Contact Info) Description 10/21/[address] [facility] [address] [place] [address] Chani Jeffries RN Social History Tobacco Use Types Packs/Day Years Used Date Smoking Tobacco: Never Smokeless Tobacco: Never Comments:Pt states he has ne sabrina smoked Alcohol Use Standard Drinks/Week Comments Yes 4 (1 standard drink = 0.6 oz pur e alcohol) 4 shots a week Sex and Gender Information Value Date Recorded Sex Assigned at Male 03/09/2021 1:10 PM POLYETHYLENE BAG MACHINE OPERATOR Legal Sex Male 3:26 AM POLYETHYLENE BAG MACHINE OPERATOR Gender Identity Male 03/09/2021 1:10 PM POLYETHYLENE BAG MACHINE OPERATOR Sexual Orientation Straight 03/09/2021 1: 10 PM POLYETHYLENE BAG MACHINE OPERATOR documented as of this encounter Plan of Treatment Not on file documented as of this encounter Visit Diagnoses Not on filedocumented in this encounter Care Teams Machine Deburrer Relationship Specialty [place] [address] [place] [address] PCP - General Family Medicine 06/16/21 Carolina Alex MD [address] [place], [place] [id number] Hematology & Oncology 11/18/15 Rashmi Ennis APRN TRAFFIC CONTROL SPECIALIST [address] [address] Nurse Practitioner Cardiovascular Disease 06/17/22 Rashmi Ennis APRN TRAFFIC CONTROL SPECIALIST [address] [address] Assigned Heart and Vascular Provider 08/28/22 11/05/22 Napoleon Johnson MD Assigned Heart and Vascular Provider 11/06/22 documented as of this encounter
--- OUTSIDE RECORDS SUMMARY | 2024-09-17 16:11 | XMS_ITS | Encounter Summary ---
Author Organization [facility] Address [address] [place] [address] Care Team Providers Care Manager Mobile Name Role Phone Primary Dr, Kate WILSON Primary Care Provider Lou vailable Yaima Drake MD Primary Care Provider + [phone] Napoleon Johnson MD Unavailable Unavailab Carolina Nettles MD Unavailable + [phone] Carolina Alex MD Unavailable + [phone] Candie Bonilla APRN ENTERPRISE CLOUD ARCHITECT Unavailable +[phone] Reji Jessica MD Unavailable + [phone] Enoc Rossi DO Primary Care Provider [phone] Candie Bonilla APRN ENTERPRISE CLOUD ARCHITECT Unavailable +[phone] Reji Jessica MD Unavailable + [phone] Napoleon Johnson MD Unavailable Unavailab Rashmi Rehman APRN ENTERPRISE CLOUD ARCHITECT Unavailable [phone] Rashmi Ennis APRN, CNP Unavailable [phone] Napoleon Johnson MD Unavailable Unavailab Rashmi Rehman APRN ENTERPRISE CLOUD ARCHITECT Unavailable [phone] Napoleon Johnson MD Unavailable Unavailab le Encounter Details Date Type Department Care Team (Late st Contact Info) Description 08/13/2003 Office Visit-[facility] [place] [id number] [address] Unknown, DoctorMD Social History Tobacco Use Types Packs/Day Years Used Date Smoking Tobacco: Never Assessed Sex and Gender Information Value Date Recorded Sex Assigned at Male 03/09/2021 1:10 PM SANITARIAN Legal Sex Male 3:26 AM SANITARIAN Gender Identity Male 03/09/2021 1:10 PM SANITARIAN Sexual Orientation Straight 03/09/2021 1: 10 PM SANITARIAN documented as of this encounter Progress Notes * Unknown, DoctorMD - 08/19/2003 1:36 PM CDT Progress Note Created by: Shelbi Avila MD DATE: 08/13/2003 CURLY SORIA DATE OF : 1935 AGE: [age] years old Referring Physician: YAIMA DRAKE Referring Clinic: [facility] FAX [id number] CURRENT DIAGNOSES 1. PTCA, v45.82 2. - CAD, 414.00 3. 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 - Palpitations, 785.1 ALLERGIES NKA MEDICATIONS 1. Danielle-Dec Multiple Vitamins with Minerals, 1 p.o. q.d. 2. Vitamin C 250 mg, 225 mg qd 3. Aspirin Child 81 mg, 1 p.o. q.d. 4. Plavix 75 mg, 1 p.o. q.d. 5. Lipitor 20 mg, 1 p.o. q.d. 6. Atenolol 50 mg, 1 p.o. q.d. 7. Norvasc 10 mg, 1 p.o. q.d. 8. Nitroglycerin 0.4 mg, PRN CHIEF COMPLAINTS Followup of Hosp and Post-PTCA HISTORY OF PRESENT ILLNESS Today I had the pleasure of seeing Curly Soria in follow-up after his angioplasty. You undoubtedly know by now that he had a posterolateral branch of his left circumflex stented and has done wellsince. He was complaining of nocturnal palpitations to Elizabeth Mohamud, our nurse practitioner, who saw him three weeks ago and a Holter monitor was placed but reveals only single unifocal PVCs. I went over the Holter with Curly and his and explained the benign nature of those PVCs. No complex forms were noted. He has had some atypical chest pain that I think is definitely musculoskeletal and noncardiac, extremely brief episodes of discomfort over various parts of the chest. He has had no recurrence of the discomfort he described prior to his nuclear study. He has worked physically vigorously since his angioplasty and stent and spent a day and a half raking. He said he had none of these symptoms while he was doing this physical activity or afterwards. 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 severe inferolateral ischemia with small nontransmural ME; EF decreases from from 54 to 50% [...] caffeine use-1-2 per day; Exercise - some exercise; Seat Belt Use - always; Occupation - treasury accountant; Residence - lives with ; Place of - [place]; Hours Worked - 40 hours per week; REVIEW OF SYSTEMS GENERAL weight gain INTEGUMENTARY denies any change in hair or nails, rashes, or skin lesions. EYES wears eye glasses/contact lenses EARS, NOSE, THROAT, MOUTH denies any hearing loss, epistaxis, hoarseness or difficulty speaking. RESPIRATORY denies dyspnea, snoring, cough, wheezing or hemoptysis. CARDIOVASCULAR chest discomfort, atypical, not like pre-PTCA pain ABDOMINAL denies ulcer disease, hematochezia or melena. MUSCULOSKELETAL pain back, joint pain NEUROLOGICAL tia in 1983 PSYCHIATRIC stress ENDOCRINE polydipsia, intolerance to cold HEMATOLOGICAL/IMMUNOLOGIC seasonal allergies PHYSICAL EXAMINATION VITAL SIGNS: Blood Pressure: 130/80 Sitting, Right arm, regular cuff Pulse- 70.00/min. Weight- 226.00 lbs. Height- 72.00 Temperature- .00 CONSTITUTIONAL cooperative, alert and oriented,well developed, well nourished, in no acute distress. HEAD normocephalic, atraumatic EYES Pupils equal and [...] time, person and place. MEDICATIONS UPDATED TODAY: IMPRESSIONS/PLAN I think Mr. Soria is doing extremely well and I would continue him on his current medical regimenuntil December when hopefully we will be able to discontinue his Plavix if his nuclear stress testshows no ischemia. He was suppose to have a lipid profile drawn today but unfortunately the instructions from our office were not clear regarding fasting and he had breakfast this morning. He said hewould much rather have those drawn at your office which is closer and if you would kindly fax me a copy of those so that I have them for his chart here I would appreciate it. TODAYS ORDERS 1. Treadmill Nuclear Study 6 months-Dec 2. Return Visit 6 months-after jennifer Avila MD documented in this encounter Plan of Treatment Not on file documented as of this encounter Visit Diagnoses Not on filedocumented in this encounter Additional Health Concerns Infection Onset Date Last Indicated Resolved Time Rule Out COVID-19 04/21/2022 04/21/2022 04/21/2022 8:12 AM SANITARIAN documented as of this encounter Care Teams Manager Mobile Relationship Specialty Start Date End Date Primary Kate Pitts MD PCP - General 01/05/11 01/05/12 Yaima Drake MD [facility] [address] [place] [address] PCP - General Family Practice 01/06/12 06/15/21 [place] [address] [place] [address] PCP - General Family Medicine 06/16/21 Napoleon Johnson MD Assigned Heart and Vascular Provider 02/15/20 01/24/21 Carolina Alex MD [address] [address] Hematology & Oncology 11/18/15 Carolina Alex MD [address] [address] Assigned Cancer Care Provider 11/07/20 08/29/21 Candie Bonilla APRN ENTERPRISE CLOUD ARCHITECT [address] [place] [address] Assigned Heart and Vascular Provider 01/25/21 03/14/21 Reji Jessica MD [address] [place] [address] Assigned Heart and Vascular Provider 03/15/21 06/20/21 Candie Bonilla APRN ENTERPRISE CLOUD ARCHITECT [address] [place] [address] Assigned Heart and Vascular Provider 06/21/21 04/02/22 Reji Jessica MD [address] [place] [address] Assigned Heart and Vascular Provider 04/03/22 05/14/22 Napoleon Johnson MD Assigned Heart and Vascular Provider 05/15/22 06/25/22 Rashmi Ennis APRN ENTERPRISE CLOUD ARCHITECT [address] [place] [address] Nurse Practitioner Cardiovascular Disease 06/17/22 Rashmi Ennis APRN ENTERPRISE CLOUD ARCHITECT [address] [address] Assigned Heart and Vascular Provider 06/26/22 08/20/22 Napoleon Johnson MD Assigned Heart and Vascular Provider 08/21/22 08/27/22 Rashmi Ennis APRN ENTERPRISE CLOUD ARCHITECT [address] [address] Assigned Heart and Vascular Provider 08/28/22 11/05/22 Napoleon Johnson MD Assigned Heart and Vascular Provider 11/06/22 documented as of this encounter
--- OUTSIDE RECORDS SUMMARY | 2024-09-17 16:11 | XMS_ITS | Encounter Summary ---
Author Organization [facility] Address [address] [place] [address]. [place] [address] Care Team Providers Care Technical Writer Name Role Phone Carolina Alex MD Unavailable +- [phone] Enoc Rossi DO Primary Care Provider [phone] Rashmi Ennis APRN LEGAL AIDE Unavailable [phone] Napoleon Johnson MD Unavailable Unavailab le Rashmi Ennis APRN LEGAL AIDE Unavailable [phone] Napoleon Johnson MD Unavailable Unavailab le Encounter Details Date Type Department Care Team (Late st Contact Info) Description 08/22/2022 [facility] Medical Advice [facility] [address] [place] [address] Napoleon Johnson MD Social History Tobacco Use Types Packs/Day Years Used Date Smoking Tobacco: Never Smokeless Tobacco: Never Comments:Pt states he has ne sabrina smoked Alcohol Use Standard Drinks/Week Comments Yes 4 (1 standard drink = 0.6 oz pur e alcohol) 4 shots a week Sex and Gender Information Value Date Recorded Sex Assigned at Male 03/09/2021 1:10 PM SPORTS BOOKMAKER Legal Sex Male 3:26 AM SPORTS BOOKMAKER Gender Identity Male 03/09/2021 1:10 PM SPORTS BOOKMAKER Sexual Orientation Straight 03/09/2021 1: 10 PM SPORTS BOOKMAKER documented as of this encounter Plan of Treatment Not on file documented as of this encounter Visit Diagnoses Not on filedocumented in this encounter Care Teams Technical Writer Relationship Specialty Start Date End Date Enoc Rossi [address] [place] [address] PCP - General Family Medicine 06/16/21 Carolina Alex MD [address] [place] [address] Hematology & Oncology 11/18/15 Rashmi Ennis APRN LEGAL AIDE [address] [address] Nurse Practitioner Cardiovascular Disease 06/17/22 Napoleon Johnson MD Assigned Heart and Vascular Provider 08/21/22 08/27/22 Rashmi Ennis APRN LEGAL AIDE [address] [address] Assigned Heart and Vascular Provider 08/28/22 11/05/22 Napoleon Johnson MD Assigned Heart and Vascular Provider 11/06/22 documented as of this encounter
--- OUTSIDE RECORDS SUMMARY | 2024-09-17 16:11 | XMS_ITS | Clinical Summary ---
Author Organization [facility] Address [address] [place] [address] Care Team Providers Care Security Rover Name Role Phone Enoc Rossi DO Primary Care Provide r Allergies Active Allergy Reactions Criticality Noted Date Comments Lactose Diarrhea 12/12/2015 Pneumococcal 23-Deloris Ps Vaccine Myalgia 12/12/2015 Pneumococcal 23-Valent Polysaccharide Vaccine *Unknown 10/02/2013 Shoulder/arm muscle tightened up a lot Pneumococcal Vaccine *Unknown 03/24/2018 Medications acetaminophen (TYLENOL EXTRA STRGTH) 500 mg tablet Take 500-1,000 mg by mouth every 6 hours if needed. 01/06/20 11 Active aspirin (ECOTRIN) 81 mg enteric coated tablet Take 81 mg by mouth once daily with a meal. Active Ca carb-Ca gluc-Mg ox-Mg gluco (CALCIUM MAGNESIUM) 500 mg calcium -250 mg tab Take 1 Tablet by mouth once daily if needed. Active cholecalciferol (VITAMIN D-3) 2,000 unit capsule Take 2,000 units by mouth once daily if needed. Active alpha lipoic acid 200 mg capsule Take 1 Capsule by mouth once daily if needed. Active spironolactone (ALDACTONE) 25 mg tablet Take 25 mg by mouth once daily. 06/11/19 22 Active fexofenadine (SIN) 180 mg tablet Take 180 mg by mouth once daily if needed for Allergy Symptoms. Active Ventolin HFA 90 mcg/actuation inhalerIndicatio ns:Cough, unspecified type INHALE 1-2 PUFFS BY MOUTH EVERY 4 HOURS IF NEEDED FOR SHORTNESS OF BREATH. 18 Each 3 06/15/19 23 Active rosuvastatin (CRESTOR) 10 mg tablet Take 10 mg by mouth at bedtime. 04/27/19 24 Active zinc ox-benzethonium chloride Petrolat (CRITIC-AID) 20%-51% ointment Apply topically to affected area(s) once daily in the evening. To wound when change wound dressing Active triamcinolone (ARISTOCORT; KENALOG) 0.1 % creamIndications :Chronic pruritic rash in adult Apply topically to affected area(s) three times daily. 80 g 5 10/31/19 24 Active silver 4 X 5 bndgIndications: Cellulitis of left lower extremity,Lymphe halina Apply topically to affected area(s). 7 Each 3 10/31/19 24 Active isosorbide mononitrate (IMDUR) 60 mg extended release tablet 24 hourIndications: Essential hypertension TAKE 1 TABLET BY MOUTH EVERY DAY 90 Tablet 12/26/19 24 Active meloxicam 15 mg tabletIndication s:Ulcer of right leg, with fat layer exposed (HC) Take 1 Tablet (15 mg) by mouth once daily. 30 Tablet 1 12/23/19 24 Active tamsulosin (FLOMAX) 0.4 mg capsuleIndicatio ns:BPH without obstruction/lowe r urinary tract symptoms TAKE 1 CAPSULE (0.4 MG TOTAL) BY MOUTH DAILY AFTER BREAKFAST. 90 Capsule 2 12/30/19 24 Active losartan (COZAAR) 25 mg tabletIndication s:Essential hypertension Take 1 Tablet (25 mg) by mouth once daily. 90 Tablet 3 02/29/20 24 Active torsemide 10 mg tabletIndication s:Lymphedema TAKE 1 TABLET BY MOUTH EVERY DAY 90 Tablet 07/22/19 25 Active carvediloL 6.25 mg tabletIndication s:Essential hypertension TAKE 1 TABLET (6.25 MG) BY MOUTH TWO TIMES DAILY. 180 Tablet 09/13/19 25 Active carvediloL (COREG) 6.25 mg tabletIndication s:Essential hypertension Take 1 Tablet (6.25 mg) by mouth two times daily. 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 Moderate/severe Nonrheumatic aortic valve stenosis 05/30/2022 Overview (05/30/2022): Also severe sclerosis Cardiomegaly 05/30/2022 Lymphedema of both lower extremities 05/30/2022 Overview (05/30/2022): Chronic. Is seen at lymphedema clinic Transient ischemic attack 11/24/2020 Overview (11/24/2020): Mar 24, 2018 Entered By: DAYANA MENENDEZ Comment: aphasia ~1993 Coronary heart disease 11/24/2020 Overview (11/24/2020): Mar 24, 2018 Entered By: DAYANA MENENDEZ Comment: coronary stents 2003, 2013, 2016 Non-STEMI (non-ST elevated myocardial infarction ) 08/21/2016 Mixed hyperlipidemia 10/02/2013 Essential hypertension Resolved Problems Problem Noted Date Diagnosed Date Resolved Date Paroxysmal supraventricular tachycardia 03/01/2021 02/28/2022 Morbid obesity 03/01/2021 02/28/2022 Noninfected skin tear of leg, right, sequela 05/30/2022 Skin tear of elbow without complication 12/10/2020 12/11/2020 Left rotator cuff tear arthropathy 07/14/2016 05/30/2022 Complete tear of right rotat or cuff with early signs of rotator cuff arthoropathy 07/14/2016 05/30/2022 Complete tear of right rotator cuff 05/24/2016 07/14/2016 Complete tear of left rotator cuff 05/24/2016 07/14/2016 Encounters Date Type Department Care Team Description 09/11/[address] [facility] [address] [place] [address] Enoc Rossi, DO Refill Request (Carvedilol) 07/19/[address] [facility] [address] [place] [address] Enoc Rossi, DO Refill Request (Torsemide) from Last 3 Months Immunizations Immunization Administration Dates Next Due Influenza, High-dose Inactivated 021,01/30/2019,12/30/2017,2017,01/31/2017,12/22/2015 Influenza, High-dose Quadriv alent Inactivated 02/19/2022,01/10/2020 Influenza, IIV3 (Age >=3 years) 02/23/2008 Td, Preservative Free (age > = 7 Years) 08/27/2010 Tdap 11/12/2020 Family History Medical History Relation Name Comments Bone cancer Brother Kidney failure Brother Alzheimer's disease Father Unknown Maternal Grandfather Unknown Maternal Grandmother Heart failure Mother Unknown Paternal Grandfather Unknown Paternal Grandmother Relation Name Status Comments Brother Father Maternal Grandfather Maternal Grandmother Mother Paternal Grandfather Paternal Grandmother Social History Tobacco Use Types Packs/Day Years Used Date Smoking Tobacco: Never Smokeless Tobacco: Never Tobacco Cessation:Counseling Given: Not Answered Alcohol Use Standard Drinks/Week Comments Yes 0 (1 standard drink = 0.6 oz pur e alcohol) ocassional shot of scotch PHQ-2 Answer Date Recorded PHQ-2 TOTAL SCORE 0 02/23/2023 Social Connections Answer Date Recorded Do you often feel lonely or isolated from those around you? 0 10/24/2023 Financial Resource Strain Answer Date R ecorded Difficulty of Paying Living Expenses 3 08/03/2023 Difficulty of Paying Living Expenses Not on file 08/03/2023 Food Insecurity Answer Date Recorded Do you worry your food will run out before you are able to buy more? 1 10/24/2023 Transportation Needs Answer Date Record ed Does lack of transportation keep you from medica l appointments? 1 10/24/2023 Does lack of transportation keep you from work, meetings or getting things that you need? 1 10/24/2023 Housing Stability Answer Date Recorded What is your housing situation today? 1 10/24/2023 Interpersonal Safety Answer Date Record ed Are you being hit, kicked, p ushed or yelled at (see row info)? No 10/24/2023 Interpersonal Safety Abuse 12 - 18 Not on file 10/24/2023 Interpersonal Safety Ambulatory Vulnerability No t on file 10/24/2023 Utilities Answer Date Recorded Do you have trouble paying f or utilities (for example, heat, electricity, water, phone)? 1 10/24/2023 Sex and Gender Information Value Date Recorded Sex Assigned at Not on file Legal Sex Male 6:26 AM OFFSET PLATE MAKER Gender Identity Not on file Sexual Orientation Not on file Obstetrics History Last Filed Vital Signs Vital Sign Reading Time Taken Comments Blood Pressure 140/73 2024 7:59 PM CDT Pulse 84 2024 7:59 PM CDT Temperature 36.7 C (98 F) 2024 7:59 PM CDT Respiratory Rate 14 2024 7:59 PM CDT Oxygen Saturation 93% 2024 7:59 PM CDT Inhaled Oxygen Concentration - - Weight 121.9 kg (268 lb 10.5 oz) 10/25/2023 6:00 AM CDT Height 180.3 cm (5' 11) 10/24/2023 11: 16 AM CDT Body Mass Index 37.47 10/24/2023 11:16 AM CDT Plan of Treatment Health Maintenance Due Date Last Done Comments Zoster (shingles) series for age 50+ (1 of 2) 1987 RSV vaccine for adults or (1 - 1-dose 75+ series) 02/07/2012 COVID-19 vaccine series ( season) 2023 BMI (ht and wt on same day) for age 18+ 02/24/2024 02/23/2023, 01/31/2023, 02/25/2022, Additional history exists Depression screening for age 12+ 02/24/2024 02/23/2023, 01/31/2023, 02/25/2022, Additional history exists Medicare Wellness for age 65+ 02/24/2024 02/23/2023, 02/25/2022, 02/24/2021 Influenza Vaccine (Season Ended) 2024 01/30/2021, 01/30/2019, 12/30/2017, Additional history exists Tetanus booster 11/12/2030 11/12/2020, 08/27/2010 Tdap Completed 11/12/2020 Hepatitis B series for 19+ Aged Out N o longer eligible based on patient's age to complete this topic Pneumococcal series for age 50+ Discontinued Insurance MEDICARE PART B HB ONLY [facility] MEDICARE PB ONLY Advance Directives * Full Code (Latest Code Status on File) Date Activated Date Inactivated Comments 10/24/2023 3:35 PM 10/26/2023 9:15 PM Question Answer Comments Code Status Discussion: Reviewed Preferences Care Teams Security Rover Relationship Specialty [place] [address] [place] [address] PCP - General Family Practice 05/30/22
--- OUTSIDE RECORDS SUMMARY | 2024-09-17 16:11 | XMS_ITS | Encounter Summary ---
Author Organization [facility] Address [address] [place] [address]. [place] [address] Care Team Providers Care Allergy Physician Name Role Phone Carolina Alex MD Unavailable +- [phone] Enoc Rossi DO Primary Care Provider Rashmi Ennis APRN THERAPY TECH Unavailable [phone] Napoleon Johnson MD Unavailable Unavailab le Encounter Details Date Type Department Care Team (Late st Contact Info) Description 12/10/2022 MyC Medical Advice [facility] [address] [place] [address] Ginger Westfall, RN Social History Tobacco Use Types Packs/Day Years Used Date Smoking Tobacco: Never Smokeless Tobacco: Never Comments:Pt states he has ne sabrina smoked Alcohol Use Standard Drinks/Week Comments Yes 4 (1 standard drink = 0.6 oz pur e alcohol) 4 shots a week PHQ-2 Answer Date Recorded PHQ-2 Score 0 11/03/2022 Sex and Gender Information Value Date Recorded Sex Assigned at Male 03/09/2021 1:10 PM DIE TESTER Legal Sex Male 3:26 AM DIE TESTER Gender Identity Male 03/09/2021 1:10 PM DIE TESTER Sexual Orientation Straight 03/09/2021 1: 10 PM DIE TESTER COVID-19 Exposure Response Date Recorded In the last 10 days, have yo u been in contact with someone who was confirmed or suspected to have Coronavirus/COVID-19? No / Unsure 12/08/2022 11:43 AM CDT documented as of this encounter Plan of Treatment Not on file documented as of this encounter Visit Diagnoses Not on filedocumented in this encounter Care Teams Allergy Physician Relationship Specialty [place] [address] [place] [address] PCP - General Family Medicine 06/16/21 Carolina Alex MD [address] [place] [address] Hematology & Oncology 11/18/15 Rashmi Ennis APRN THERAPY TECH [address] [place] [address] Nurse Practitioner Cardiovascular Disease 06/17/22 Napoleon Johnson MD Assigned Heart and Vascular Provider 11/06/22 documented as of this encounter
--- OUTSIDE RECORDS SUMMARY | 2024-09-17 16:11 | XMS_ITS | Encounter Summary ---
Author Organization [facility] Address [address] [place] [address] Care Team Providers Care Groundhand Name Role Phone Primary Dr, Kate WILSON Primary Care Provider Lou vailable Yaima Drake MD Primary Care Provider + [phone] Napoleon Johnson MD Unavailable Unavailab Carolina Nettles MD Unavailable + [phone] Carolina Alex MD Unavailable + [phone] Candie Bonilla APRN MANUFACTURING EXECUTIVE Unavailable +[phone] Reji Jessica MD Unavailable + [phone] Enoc Rossi DO Primary Care Provider [phone] Candie Bonilla APRN MANUFACTURING EXECUTIVE Unavailable +[phone] Reji Jessica MD Unavailable + [phone] Napoleon Johnson MD Unavailable Unavailab Rashmi Rehman APRN MANUFACTURING EXECUTIVE Unavailable [phone] Rashmi Ennis APRN, CNP Unavailable [phone] Napoleon Johnson MD Unavailable Unavailab Rashmi Rehman APRN MANUFACTURING EXECUTIVE Unavailable [phone] Napoleon Johnson MD Unavailable Unavailab le Encounter Details Date Type Department Care Team (Late st Contact Info) Description 01/27/2006 Office Visit-[facility] [address] [place] [address] [place] Shelbi Winnie Social History Tobacco Use Types Packs/Day Years Used Date Smoking Tobacco: Never Assessed Sex and Gender Information Value Date Recorded Sex Assigned at Male 03/09/2021 1:10 PM SURGERY SPECIALIST Legal Sex Male 3:26 AM SURGERY SPECIALIST Gender Identity Male 03/09/2021 1:10 PM SURGERY SPECIALIST Sexual Orientation Straight 03/09/2021 1: 10 PM SURGERY SPECIALIST documented as of this encounter Progress Notes * Shelbi Avila - 01/28/2006 4:41 PM CDT Progress Note Created by: Shelbi Avila MD DATE: 01/27/2006 CURLY SORIA DATE OF : 1935 AGE: [age] years old Referring Physician: YAIMA DRAKE Referring Clinic: [facility] CURRENT DIAGNOSES 1. - CAD, 414.00 2. 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 - Palpitations, 785.1 4. Abnormal Ekg, 794.31 5. PTCA, V45.82 ALLERGIES NKA MEDICATIONS (including any changes made today) 1. Lipitor 10 mg, 1 p.o. q.d. 2. Fish Oil -, 1 p.o. q.d. 3. Repronex 75 iu, 1 p.o. q.i.d. 4. Arginine 500 mg, 1 p.o. q.d. 5. CoQ 10 50 mg, 1 p.o. b.i.d. 6. Beta Carotene 30 mg, 1 p.o. q.d. 7. garlic 600 mg, 1 p.o. q.d. 8. Danielle-Dec Multiple Vitamins with Minerals, 1 p.o. q.d. 9. Vitamin C 250 mg, 225 mg qd 10. Aspirin Child 81 mg, 1 p.o. q.d. 11. Avodart 0.5 mg, 1 p.o. q.d. 12. Norvasc 5 mg, 1 p.o. q.d. 13. Atenolol 50 mg, 1 p.o. q.d. 14. Nitroglycerin 0.4 mg, PRN CHIEF COMPLAINTS Hx PL stent HISTORY OF PRESENT ILLNESS It was so nice to see Curly back today. He is doing very well. You will recall that I have been following him here after a posterolateral stent and a small infarct. He has been asymptomatic since that procedure. His most recent nuclear study was about two weeks ago and shows a very small scar inferiorly with no ischemia in any area. He denies any chest pain of any description, any palpitations or lightheaded spells, any problems with his breathing or problems with fluid retention. His physical examination is also unchanged. He looks very healthy. His lung ibarra are clear. His cardiac exam reveals a regular rhythm with no murmur, no gallop or rub. He has no peripheral edema today. 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 severe inferolateral ischemia with small nontransmural PA; EF decreases from from 54 to 50% rest to exercise., myocardial perfusion imaging (Nuclear) November 2003, myocardial perfusion imaging (Nuclear) December 2004, myocardial perfusion imaging (Nuclear) December 2005 Left Ventricular Ejection Fraction: 50%, 58% 12/27, EF50% by nuclear study -December 2004, EF50% by nuclear study - December 2005 PMHx Stress Echo Results: 03/26: LVH but otherwise normal Nuclear Results: 12/28: Normal FAMILY HISTORY: Father - age 96 and [...] and caffeine use-1-2 per day; Lifestyle - ; Exercise - some exercise, aerobics, treadmill, weight lifting and 2 days per week; Seat Belt Use - always; Occupation - accountant clerk; Residence - lives with ; Place of - [place]; Hours Worked - 90 hours per week; REVIEW OF SYSTEMS GENERAL weight loss, no change in appetite INTEGUMENTARY denies any change in hair or nails, rashes, or skin lesions. EYES wears eye glasses/contact lenses EARS, NOSE, THROAT, MOUTH denies any hearing loss, epistaxis, hoarseness or difficulty speaking. RESPIRATORY allergies CARDIOVASCULAR See HPI ABDOMINAL denies ulcer disease, hematochezia or melena. MUSCULOSKELETAL pain back, joint pain NEUROLOGICAL tia in 1983 PSYCHIATRIC stress ENDOCRINE polydipsia, intolerance to cold HEMATOLOGICAL/IMMUNOLOGIC seasonal allergies PHYSICAL EXAMINATION VITAL SIGNS: Blood Pressure: 124/78 Sitting, Left arm, regular cuff Pulse- 60.00/min. Weight- 232.20 lbs. Height- 72.00 Temperature- .00 CONSTITUTIONAL cooperative, alert and oriented,well developed, well nourished, in no acute distress. SKIN warm and dry to touch, no apparent skin lesions or masses noted HEAD normocephalic, atraumatic ENT no pallor or cyanosis, dentition good CHEST normal symmetry, no tenderness to palpation, normal respiratory excursion, no intercostal retraction, no use of accessory muscles, clear to auscultation and percussion. CARDIAC regular rhythm, S1 normal, S2 normal, No S3 or S4, Apical impulse not displaced, no murmurs, gallops or rubs detected. PERIPHERAL PULSES pulses full and equal in all extremities EXTREMITIES & BACK no deformities, clubbing, cyanosis, erythema or edema observed. There are no spinal abnormalities noted. Normal muscle strength and tone. PSYCHIATRIC no difficulties with speech or language, normal memory NEUROLOGICAL no gross motor deficits noted, affect appropriate, oriented to time, person and place. IMPRESSIONS/PLAN I made no changes in his medical regimen, and I have told him that as long as things remain stable I will plan to see him back in a year and repeat his nuclear stress test at that time. TODAYS ORDERS 1. Treadmill Nuclear Study 1 year 2. Return Visit 1 year Shelbi Avila MD documented in this encounter Plan of Treatment Not on file documented as of this encounter Visit Diagnoses Not on filedocumented in this encounter Additional Health Concerns Infection Onset Date Last Indicated Resolved Time Rule Out COVID-19 04/21/2022 04/21/2022 04/21/2022 8:12 AM SURGERY SPECIALIST documented as of this encounter Care Teams Groundhand Relationship Specialty Start Date End Date Primary Kate Pitts MD PCP - General 01/05/11 01/05/12 Yaima Drake MD [facility] [address] [place] [address] PCP - General Family Practice 01/06/12 06/15/21 [place] [address] [place] [address] PCP - General Family Medicine 06/16/21 Napoleon Johnson MD Assigned Heart and Vascular Provider 02/15/20 01/24/21 Carolina Alex MD [address] [place] [address] Hematology & Oncology 11/18/15 Carolina Alex MD [address] [place] [address] Assigned Cancer Care Provider 11/07/20 08/29/21 Candie Bonilla APRN MANUFACTURING EXECUTIVE [address] [place] [address] Assigned Heart and Vascular Provider 01/25/21 03/14/21 Reji Jessica MD [address] [place] [address] Assigned Heart and Vascular Provider 03/15/21 06/20/21 Candie Bonilla APRN MANUFACTURING EXECUTIVE [address] [place] [address] Assigned Heart and Vascular Provider 06/21/21 04/02/22 Reji Jessica MD [address] [place] [address] Assigned Heart and Vascular Provider 04/03/22 05/14/22 Napoleon Johnson MD Assigned Heart and Vascular Provider 05/15/22 06/25/22 Rashmi Ennis APRN MANUFACTURING EXECUTIVE [address] [id number] Nurse Practitioner Cardiovascular Disease 06/17/22 Rashmi Ennis APRN MANUFACTURING EXECUTIVE [address] [id number] Assigned Heart and Vascular Provider 06/26/22 08/20/22 Napoleon Johnson MD Assigned Heart and Vascular Provider 08/21/22 08/27/22 Rashmi Ennis APRN MANUFACTURING EXECUTIVE [address] [address] Assigned Heart and Vascular Provider 08/28/22 11/05/22 Napoleon Johnson MD Assigned Heart and Vascular Provider 11/06/22 documented as of this encounter
--- OUTSIDE RECORDS SUMMARY | 2024-09-17 16:11 | XMS_ITS | Encounter Summary ---
Author Organization [facility] Address [address] [place] [address] Care Team Providers Care Webfocus Developer Name Role Phone Primary Dr, Kate WILSON Primary Care Provider Lou vailable Yaima Drake MD Primary Care Provider + [phone] Napoleon Johnson MD Unavailable Unavailab Carolina Nettles MD Unavailable + [phone] Carolina Alex MD Unavailable + [phone] Candie Bonilla APRN WORKFORCE DEVELOPMENT SPECIALIST Unavailable +[phone] Reji Jessica MD Unavailable + [phone] Enoc Rossi DO Primary Care Provider [phone] Candie Bonilla APRN WORKFORCE DEVELOPMENT SPECIALIST Unavailable +[phone] Reji Jessica MD Unavailable + [phone] Napoleon Johnson MD Unavailable Unavailab Rashmi Rehman APRN WORKFORCE DEVELOPMENT SPECIALIST Unavailable +[phone] Rashmi Ennis APRN, CNP Unavailable [phone] Napoleon Johnson MD Unavailable Unavailab Rashmi Rehman APRN WORKFORCE DEVELOPMENT SPECIALIST Unavailable +[phone] Napoleon Johnson MD Unavailable Unavailab le Encounter Details Date Type Department Care Team (Late st Contact Info) Description 01/27/2005 Office Visit-[facility] [address] [place] [id number] Unknown, DoctorMD Social History Tobacco Use Types Packs/Day Years Used Date Smoking Tobacco: Never Assessed Sex and Gender Information Value Date Recorded Sex Assigned at Male 03/09/2021 1:10 PM EXCHANGE MECHANIC Legal Sex Male 3:26 AM EXCHANGE MECHANIC Gender Identity Male 03/09/2021 1:10 PM EXCHANGE MECHANIC Sexual Orientation Straight 03/09/2021 1: 10 PM EXCHANGE MECHANIC documented as of this encounter Progress Notes * Unknown, DoctorMD - 02/01/2005 2:11 PM CDT Progress Note Created by: Shelbi Avila MD DATE: 01/27/2005 CURLY SORIA DATE OF : 1935 AGE: [age] years old Referring Physician: YAIMA DRAKE Referring Clinic: [facility] CURRENT DIAGNOSES 1. PTCA, V45.82 2. - CAD, 414.00 3. 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 - Palpitations, 785.1 5. Abnormal Ekg, 794.31 ALLERGIES NKA MEDICATIONS (including any changes made today) 1. Lipitor 10 mg, 1 p.o. q.d. 2. Uroxatral 10 mg, 1 p.o. q.d. 3. Fish Oil -, 1 p.o. q.d. 4. Nettle root 300mg, 1 p.o. q.d. 5. Repronex 75 iu, 1 p.o. q.i.d. 6. Arginine 500 mg, 1 p.o. q.d. 7. CoQ 10 50 mg, 1 p.o. b.i.d. 8. Beta Carotene 30 mg, 1 p.o. q.d. 9. garlic 600 mg, 1 p.o. q.d. 10. Danielle-Dec Multiple Vitamins with Minerals, 1 p.o. q.d. 11. Vitamin C 250 mg, 225 mg qd 12. Aspirin Child 81 mg, 1 p.o. q.d. 13. Norvasc 5 mg, 1 p.o. q.d. 14. Atenolol 50 mg, 1 p.o. q.d. 15. Nitroglycerin 0.4 mg, PRN CHIEF COMPLAINTS PL Stent 06/26 HISTORY OF PRESENT ILLNESS It was so nice to see Curly Soria back. 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 He denies any anginal symptoms, which for him were dyspnea on exertion. And his latest nuclear study, done at the end of December, looked beautiful. You are following his lipid profile and he does have some concerns about some bilateral knee and lower extremity pain that may be due to his Lipitor. I told him that what I usually do is give the patient a two-week vacation from the drug and just see if things get better and that seems to be the most cost-effective way to approach it but I am sure you have your own method. In any event, he wanted to wait until he saw you before he decided whether to do that or not. On physical examination today, his lung ibarra are clear. His cardiac examination reveals a regularrhythm. He has no peripheral edema. 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 severe inferolateral ischemia with small nontransmural WA; EF decreases from from 54 to 50% rest to exercise., myocardial perfusion imaging (Nuclear) November 2003, myocardial perfusion imaging (Nuclear) December 2004 Left Ventricular Ejection Fraction: 50%, 58% 12/27, EF50% by nuclear study -December 2004 PMHx Stress Echo Results: 03/26: LVH but [...] Seat Belt Use - always; Occupation - public accountant; Residence - lives with ; Place of - [place]; Hours Worked - 90 hours per week; [...] allergies PHYSICAL EXAMINATION VITAL SIGNS: Blood Pressure: 120/74 Sitting, Right arm, large cuff Pulse- 60.00/min. Weight- 227.00 lbs. Height- .00 Temperature- .00 CONSTITUTIONAL cooperative, alert and oriented,well [...] oriented to time, person and place. IMPRESSIONS/PLAN Mr. Curly Soria is in, thankfully, stable condition. A year out now from his posterolateral stent, with no symptoms to speak of. I would recommend that barring interval problems that he followup with me in a year and we will schedule him for another nuclear treadmill. I spent 30 minutes with the Estlela's and 70% of that time was spent in counseling and education and also answering their questions. TODAYS ORDERS 1. Return Visit 1 year 2. Treadmill Nuclear Study 1 year Shelbi Avila MD documented in this encounter Plan of Treatment Not on file documented as of this encounter Visit Diagnoses Not on filedocumented in this encounter Additional Health Concerns Infection Onset Date Last Indicated Resolved Time Rule Out COVID-19 04/21/2022 04/21/2022 04/21/2022 8:12 AM EXCHANGE MECHANIC documented as of this encounter Care Teams Webfocus Developer Relationship Specialty Start Date End Date Primary Kate Pitts MD PCP - General 01/05/11 01/05/12 Yaima Drake MD [facility] [address] [place] [address] PCP - General Family Practice 01/06/12 06/15/21 [place] [address] [place] [id number] PCP - General Family Medicine 06/16/21 Napoleon Johnson MD Assigned Heart and Vascular Provider 02/15/20 01/24/21 Carolina Alex MD [address] [place] [address] Hematology & Oncology 11/18/15 Carolina Alex MD [address] [place] [address] Assigned Cancer Care Provider 11/07/20 08/29/21 Candie Bonilla APRN WORKFORCE DEVELOPMENT SPECIALIST [address] [place] [id number] Assigned Heart and Vascular Provider 01/25/21 03/14/21 Reji Jessica MD [address] [place] [address] Assigned Heart and Vascular Provider 03/15/21 06/20/21 Candie Bonilla APRN WORKFORCE DEVELOPMENT SPECIALIST [address] [place] [id number] Assigned Heart and Vascular Provider 06/21/21 04/02/22 Reji Jessica MD [address] [place] [id number] Assigned Heart and Vascular Provider 04/03/22 05/14/22 Napoleon Johnson MD Assigned Heart and Vascular Provider 05/15/22 06/25/22 Rashmi Ennis APRN WORKFORCE DEVELOPMENT SPECIALIST [address] [id number] Nurse Practitioner Cardiovascular Disease 06/17/22 Rashmi Ennis APRN WORKFORCE DEVELOPMENT SPECIALIST [address] [id number] Assigned Heart and Vascular Provider 06/26/22 08/20/22 Napoleon Johnson MD Assigned Heart and Vascular Provider 08/21/22 08/27/22 Rashmi Ennis APRN WORKFORCE DEVELOPMENT SPECIALIST [address] [address] Assigned Heart and Vascular Provider 08/28/22 11/05/22 Napoleon Johnson MD Assigned Heart and Vascular Provider 11/06/22 documented as of this encounter
[2024-09-17 16:23] LABS: Basophils Absolute Auto 0.03 K/uL (0.00-0.30); Basophils Percent Auto 0.5 % (0.0-3.0); Eosinophils Absolute Auto 0.29 K/uL (0.00-0.50); Eosinophils Percent Auto 4.8 % (0.0-7.0); Hematocrit 43.8 % (37.0-53.0); Hemoglobin* 14.5 gm/dL (13.5-17.5); Immature Granulocytes Abs Auto 0.03 K/uL (0.00-0.30); Immature Granulocytes Pct Auto 0.5 %; Lactate* 1.3 mmol/L (0.5-1.9); Lymphocytes Percent Auto 15.9 % (20-44); Mean Corpuscular HGB Conc 33 gm/dL (32-36); Mean Corpuscular Hemoglobin 31 pg (26-34); Mean Corpuscular Volume 94 fL (80-100); Monocytes Percent Auto 9.6 % (0.0-11.0); Neutrophils Absolute Auto 4.15 K/uL (1.7-7.0); Neutrophils Percent Auto 68.7 % (42.0-72.0); Platelet Count* 151 K/uL (140-440); Red Blood Count 4.68 m/uL (4.30-5.90); White Blood Count* 6.04 K/uL (4.50-11.00)
[2024-09-17 16:27] LABS: Slide Review Reflex No
[2024-09-17 16:51] LABS: Chloride* 104 mmol/L (96-114)
[2024-09-17 16:52] LABS: Albumin* 4.2 g/dL (3.3-5.0); Potassium* 4.7 mmol/L (3.6-5.1); Sodium* 136 mmol/L (135-149)
[2024-09-17 16:54] LABS: Blood Urea Nitrogen* 21 mg/dL (7-30); Creatinine* 1.3 mg/dL (0.5-1.5); Est. Creatinine Clearance* 42.64; Estimated Glomerular Filt Rate 53 ml/min
[2024-09-17 16:55] LABS: Alanine Aminotransferase* 30 U/L (4-50); Alkaline Phosphatase* 63 U/L (40-150); Anion Gap 5 mEq/L (7-15); Aspartate Amino Transferase* 35 U/L (12-35); Bilirubin Total* 0.6 mg/dL (0.1-1.5); Carbon Dioxide* 27 mmol/L (20-32); Glucose* 101 mg/dL (60-115); Total Protein* 6.8 g/dL (6.0-8.3)
[2024-09-17 16:59] LABS: C Reactive Protein* < 0.5 mg/dL (0.5-1.0)
[2024-09-17 17:12] LABS: Procalcitonin* 0.07 ng/mL (<0.50)
[2024-09-17 17:24] VITALS: BP 141/87; PULSE 53; RESP 18; TEMP 37; O2SAT 95
[2024-09-17] MEDS: levoFLOXacin 500 MG TABLET PO (17:59)
== END 2024-09-17 18:20 | disposition home or self-care (01) ==
PROVIDERS: Emergency Provider Family Medicine
DX: I89.0 Lymphedema, not elsewhere classified (principal); M79.89 Other specified soft tissue disorders
CPT/HCPCS: 36415; 80053; 83605; 84145; 85025; 86140; 87070; 87186; 99283; 99284; A9270

== ENCOUNTER 2024-09-21 12:54 | Outpatient (CLI) | payer MEDICARE, BC, SELFPAY | END 2024-09-21 12:55 | disposition home or self-care (01) | LOC: WOUND 13:05 | PROVIDERS: Referring Provider Family Medicine; Visit Provider Nurse Practitioner Family | DX: R21 Rash and other nonspecific skin eruption (principal); I89.0 Lymphedema, not elsewhere classified | CPT/HCPCS: G0463 ==